=== PATIENT | female | born 1975 | race Caucasian/White ===

== ENCOUNTER → 2017-06-25 13:25 | Outpatient (CLI) | payer MEDICAID, SELFPAY ==
--- NOTE | 2017-06-25 | IMM_PTH ---
PATIENT: MARY ESCOBAR LOC: [facility] U#:[id number] AGE/SX: 49/F ROOM: RE06/25/[address]: Dr. Xochilt Soto MD : 1975 BED: DIS: SPEC #: [id number] RECD: 06/29/17 10:40 STATUS: BAN REQ #: [id number] AXEL: 06/25/17 00:[address]: Xochilt Soto DEPT: IMMUNOHISTOCHEMISTRY RECD BY: Livier Randall ENTERED: 06/29/17 10:41 SP TYPE: IMMUNO OTHR DR: Dr. Scott Avila MD Tissues: Left breast, NOS Procedures: CK8 (add) DESMIN (add) Vimentin (add) Pankeratin (add) Smooth Muscle Actin S-100 (add) PHYSICIAN & INSTITUTION [place] [id number] SPECIMEN INFORMATION: Tissue Source: Left breast Clinical Info: Abnormal left breast mammogram/ultrasound Specimen Number: [id number] CPT code: 79290, 11670 x5 METHODOLOGY: Deparaffinized sections of prefer/formalin-fixed tissue or PAP/DQ stained slides are incubated with monoclonal/polyclonal antibodies/oligonucleotide probes. Localization is made via biotin free immunoperoxidase method. Appropriate controls are performed and reacted as expected. Results on target cell population are indicated in the following table: RESULTS: ANTIBODY / CLONE RESULT S-100 (4C4.9) negative Actin (1A4) negative Desmin (CE-R-11) negative Vimentin (V9) positive AE1-3 (AE1/AE3/PCK26) negative CK8 (26dnooE49) negative These tests were developed and their performance characteristics determined by [facility]. They may not have been cleared or approved by the U.S. Food and Drug Administration. The FDA has determined that such clearance or approval is not necessary. INTERPRETATION: Left breast, ultrasound-guided needle core biopsy: Breast tissue with spindle cell (fibroblast) proliferation and chronic inflammation, favor reactive/ inflammatory process. SJ:linda 07/09/17 Comment: This case was sent to [facility] for expert opinion and reviewed by Dr. Soto and the above diagnosis is rendered. Case has been reviewed in consultation with Dr. De Guzman who concurs with the above diagnosis. IDC:AM
--- NOTE | 2017-06-25 13:25 | BRBX_PTH ---
PATIENT: MARY ESCOBAR LOC: [facility] U#:[id number] AGE/SX: 49/F ROOM: RE06/25/[address]: Dr. Xochilt Soto MD : 1975 BED: DIS: SPEC #: [id number] RECD: 06/27/17 17:27 STATUS: BAN ARRIAGAHa #: [id number] AXEL: 06/25/17 13:[address]: Xochilt Soto DEPT: SURGICAL PATHOLOGY RECD BY: Jory Traylor ENTERED: 06/28/17 11:18 SP TYPE: BREAST BX OTHR DR: Dr. Scott Avila MD Tissues: Left breast, NOS Procedures: Surgery Specimen Level IV HEADER OPERATION: Ultrasound guided left breast needle core biopsy PRE-OP DIAGNOSIS: Abnormal left breast mammogram/ultrasound TISSUE SUBMITTED: Left breast, needle core biopsy ISCHEMIC TIME: 2 minutes MICROSCOPIC DIAGNOSIS Left breast, ultrasound-guided needle core biopsy: Breast tissue with spindle cell (fibroblast) proliferation and chronic inflammation, favor reactive/ inflammatory process. See comment. LESTER:linda 07/09/17 COMMENT The specimen was sent to [facility] for expert opinion and reviewed by Dr. Soto and above diagnosis is rendered. The complete report is viewable in patient?s EMR. Immunohistochemistry ([id number]) and additional stains performed at [facility] supports the above diagnosis. Correlation with clinical, radiologic findings and apjpropriate follow up are necessary. Case has been reviewed in consultation with Dr. De Guzman who concurs with the above diagnosis. IDC:AM MICROSCOPIC DESCRIPTION Slides are reviewed. GROSS DESCRIPTION Received in fixative is one container labeled with the patient's name and designated left breast biopsy. The specimen consists of multiple elongated fragments of powlel-yellow fibroadipose tissue mixed with blood clot that in aggregate measure 3 x 2.5 x 0.1 cm. The entire specimen is submitted in one cassette. / LESTER:linda 06/28/16 TC:5 CPT: 85456
== END ==
PROVIDERS: Family Provider Family Medicine; PCP Family Medicine; Visit Provider Surgery
DX: R92.8 Other abnormal and inconclusive findings on diagnostic imaging of breast (principal)
CPT/HCPCS: 88305; 88341; 88342

== ENCOUNTER 2019-04-30 11:57 | Emergency (ER) | payer MEDICAID, SELFPAY ==
[2019-04-30 11:59] VITALS: BP 166/115; PULSE 96; RESP 17; TEMP 36.9; O2SAT 99; BMI 61.5
--- NOTE | 2019-04-30 12:01 | NURSING ---
NO OLD EKGS
--- NOTE | 2019-04-30 12:03 | NURSING ---
NO OLD EKGS
--- NOTE | 2019-04-30 12:08 | EKG12_ITS ---
Test Reason : EPIGASTRIC PAIN/CP Blood Pressure : / mmHG Vent. Rate : 093 BPM Atrial Rate : 093 BPM P-R Int : 148 ms QRS Dur : 084 ms QT Int : 364 ms P-R-T Axes : 054 004 032 degrees QTc Int : 452 ms Normal sinus rhythm Normal ECG Confirmed by RANJAN TREVINO, NIKKI ([id number]), editor in chief newspaper SANIYA FLOR ([id number]) on 05/07/2019 2:26:20 PM Referred By: ANGELICA/JENNIFER Confirmed By:ULICES WOODRUFF MD
--- NOTE | 2019-04-30 12:27 | ED.DCSUM_ITS ---
- ER Visit Summary Date of Service: 04/30/19 Chief Complaint: Epigastric pain History of Present Illness: The patient is a 43 F history of cardiac disease. History of reflux. She takes a generic for Prilosec. States she was out of her medication for several days. Started this discomfort she just started her Prilosec again yesterday and started to feel better. Her friend Markie her to have the pain checked out since it was in her lower chest epigastric region. She denies any cardiac history. She denies any exertional chest pain or exertional shortness of breath. She states this is felt this way before secondary to her reflux. It is improving since she is restarted her Prilosec. Physical Examination: Middle-aged female no acute distress vital signs are stable afebrile. Pulse ox 90% room air no signs hypoxia. H EENT exam unremarkable. Neck nontender. Lungs clear to auscultation bilaterally. Heart regular rate and rhythm no murmur. Chest wall nontender. Abdomen soft nontender normal bowel sounds no peritoneal signs. Patient is moving all 4 extremities. Calves are nontender without edema. Neurologically she is awake and alert with no focal motor deficits. Test Results: EKG shows a normal sinus rhythm rate of 93 with no signs of [place] or ischemia. Emergency Department Course and Treatment: I had a lengthy discussion with the patient. She does not think this is cardiac. Clinically I do not think is cardiac. She will get a GI cocktail and Pepcid and be reassessed. Treatment Plan: Continue her current medications and follow-up with your doctor if not improving return if worse. Disposition: dc. Impression: Acute gastroesophageal reflux This note was generated with [employer] dictation software. It may contain incorrect words, spelling, and punctuation that were not noted in review of the chart prior to signing ED Disposition - Plan for ED Patient: Referrals: Verito Sandy MD [Primary Care Provider] -
--- NOTE | 2019-04-30 12:30 | ED.DEP ---
ED Disposition - Plan for ED Patient: Disposition: Home or Assisted Living Instructions: GERD (Adult) Referrals: Verito Sandy MD [Primary Care Provider] - As Needed Additional Instructions: Continue your current reflux medications. Follow-up with your doctor if not improving or return to the ER if worse.
[2019-04-30] MEDS: Mag Hydrox/Al Hydrox/Simeth 30 ML UDC PO (12:31)
[2019-04-30] MEDS: Famotidine 20 MG Tablet 40 MG PO (12:31)
[2019-04-30 13:20] VITALS: BP 125/75; PULSE 89; RESP 20; O2SAT 98
== END 2019-04-30 13:34 | disposition home or self-care (01) ==
LOC: ED 12:38
PROVIDERS: Emergency Provider Emergency Medicine; Family Provider Internal Medicine; PCP Internal Medicine
DX: K21.9 Gastro-esophageal reflux disease without esophagitis (principal); Z79.899 Other long term (current) drug therapy
CPT/HCPCS: 93005; 99283

== ENCOUNTER 2021-03-10 04:04 | Inpatient (IN) | payer MEDICAID, SELFPAY ==
[2021-03-10] VITALS (19 sets, daily range): BP systolic 148–197; BP diastolic 87–113; PULSE 100–113; RESP 16–22; TEMP 36.1–37.6; O2SAT 94–99; BMI 64.7; BMI 64.2
--- NOTE | 2021-03-10 04:42 | RAD_ITS ---
STUDY: X-RAY CHEST REASON FOR EXAM: Female, 45 years old. Chest pain TECHNIQUE: Portable, upright, AP chest radiograph COMPARISON: None. FINDINGS: Bilateral infrahilar patchy opacities. There is no demonstrated pleural abnormality. Normal size heart. Normal mediastinum and mckay. Normal visualized pulmonary arteries. Normal visualized aortic arch and descending thoracic aorta. There are diffuse degenerative changes of the visualized thoracic spine. There is no demonstrated abnormality of the visualized soft tissue structures of the upper abdomen. RAD/Chest 1 View (Portable) IMPRESSION: Suspect bilateral infrahilar pneumonia. Electronically Signed: Miguel Higgins MD at 5:25 EDT Tel , Service support ,
--- NOTE | 2021-03-10 04:43 | EKG12_ITS ---
Test Reason : DYSRHYTHMIA Blood Pressure : / mmHG Vent. Rate : 103 BPM Atrial Rate : 103 BPM P-R Int : 182 ms QRS Dur : 082 ms QT Int : 366 ms P-R-T Axes : 055 002 037 degrees QTc Int : 479 ms Sinus tachycardia Otherwise normal ECG Confirmed by PRINCE TREVINO, JORGE ([id number]), mapping editor FIGUEROA ESPINOZA ([id number]) on 03/15/2021 8:30:14 AM Referred By: BRADEN Confirmed By:JORGE MORRISON MD
--- NOTE | 2021-03-10 04:54 | EDS_ITS ---
HPI History of Present Illness Chief Complaint: General Illness Informant: patient Onset/Context/Timing Onset: Today Context: Gradual Onset Timing: Continuous Quality: Sharp Location: Right breast Worsened by: Nothing Relieved by: Pressing on a certain spot on the right chest Narrative Narrative: Patient presents with right-sided chest pain that began earlier today. Patient states it is sharp. Patient states it is under her right breast. Patient states it is better when she pushes on a certain spot on her right chest. Patient states nothing makes it worse. Patient admits to some nausea and vomiting. Patient denies any diaphoresis. Patient denies any shortness of breath or cough. Patient denies any fevers or chills. Patient states the pain has been constant. [facility] Medical History GERD (gastroesophageal reflux disease) Home Medications omeprazole 40 mg PO DAILY 04/30/19 [History Last Taken Unknown] Allergy/AdvReac Type Severity Reaction Status Date / Time No Known Allergies Allergy Verified 04/30/19 11:58 Surgical History History of tonsillectomy Social History Smoking Status: Never smoker ROS ROS ED Constitutional Constitutional ED: Denies chills or fever(s) Eyes Eyes: Denies blurry vision or change in vision ENT ENT ED: Denies rhinorrhea or sore throat Cardiovascular Cardiovascular: Reports chest pain; Denies palpitations Respiratory/Chest Respiratory/Chest: Denies cough or dyspnea Gastrointestinal Gastrointestinal: Reports nausea and vomiting Genitourinary Genitourinary ED: Denies dysuria or hematuria Musculoskeletal Musculoskeletal: Denies back pain or neck pain Integumentary Denies abscess or rash Neurologic Neurologic: Denies headache(s) or weakness Allergic/Immunologic Allergic/Immunologic ED: Denies mouth swelling or urticaria EXAM Physical Exam Const Vital Signs: 03/10/21 04:05 03/10/21 04:13 03/10/21 05:19 Temperature 98.0 F Temperature Source Oral Pulse Rate 113 H 105 H Respiratory Rate 18 Respiratory Pattern Normal Blood Pressure 197/113 H 173/102 H Blood Pressure Mean 141 125 Pulse Ox 95 97 Oxygen Delivery Method Room Air Room Air Positive well nourished, well developed and obese General Appearance ED: well developed Nutritional Appearance: obese HEENT Reports moist mucous membranes Neck supple and no JVD Resp normal respiratory effort and clear to auscultation bilaterally Cardio regular rate, regular rhythm and no murmurs GI normal to inspection, nondistended, normoactive bowel sounds and non-tender Palpation: soft Extremity normal to inspection General Extremety ED: Negative for edema or tenderness General Extremity: Negative for edema Neuro oriented x3, CN's II-XII intact bilaterally and no sensory deficits noted Sensorium / Orientation: alert Motor Exam: strength 5/5 throughout Psych mental status grossly normal Skin no rashes or lesions noted MDM MDM MDM Narrative Medical decision making narrative: EKG was obtained. On my interpretation, it showed a normal sinus rhythm with a rate of 103. DE interval, QRS interval, and QTc intervals were all normal. [place] was normal. There are no acute ST or T wave changes. Portable chest x-ray was obtained. There is 1 view. On my interpretation, there is question of bilateral lower lobe infiltrates. Bony thorax is normal. There is no cardiomegaly. Radiologist also interpreted the x-ray and agrees. CBC was within normal limits. Comprehensive metabolic profile showed an elevated total bilirubin of 2.1. AST was 673, ALT was 560, and alk phos was 205. Initial high-sensitivity troponin was normal. 2-hour repeat high-sensitivity troponin was normal. Lipase was normal. Right upper quadrant ultrasound was obtained. There is cholelithiasis. There is dilation of the common bile duct to 11 mm. There is no gallbladder wall thickening. There is no pericholecystic fluid. This was interpreted by the radiologist and reviewed by myself. Patient is resting comfortably on reevaluation. Patient was advised of her findings. Case was discussed with Dr. Bagley from general surgery. He will be in to evaluate the patient. Lab Data Attestation: I reviewed the patient's lab results. Labs: Laboratory Results - last 24 hr 03/10/21 03/10/21 03/10/21 05:04 05:04 05:04 WBC 8.9 RBC 5.02 Hgb 12.7 Hct 41.2 MCV 82.1 MCH 25.3 L MCHC 30.8 L RDW Std Deviation 48.2 H RDW Coeff of Chris 16.3 H Plt Count 276 MPV 10.4 Immature Gran % (Auto) 0.300 Neut % (Auto) 83.7 H Lymph % (Auto) 9.9 L [place] % (Auto) 5.6 Eos % (Auto) 0.2 Baso % (Auto) 0.3 Absolute Neuts (auto) 7.4 Absolute Lymphs (auto) 0.88 Nucleated RBC % 0 Sodium 135 L Potassium 4.0 Chloride 101 Carbon Dioxide 25.0 Anion Gap 9 BUN 8 Creatinine 0.86 Estim Creat Clear Calc 59.96 Est GFR (MDRD) Af Amer 92 Est GFR (MDRD) Non-Af 76 BUN/Creatinine Ratio 9.3 L Glucose 129 H Calcium 9.0 Total Bilirubin 2.10 H AST 673 H ALT 560 H Alkaline Phosphatase 205 H Troponin I High Sens 5 5 Total Protein 8.2 Albumin 3.3 Globulin 4.9 H Albumin/Globulin Ratio 0.7 L Lipase 73 Radiography Chest X-Ray - ED: 1 View, Read by ED Physician, Read by Radiologist, Right Infiltrate and Left Infiltrate Diagnostic Testing: Clinical Impression(s) from Imaging Studies Chest X-Ray 03/10/21 04:42 IMPRESSION: Suspect bilateral infrahilar pneumonia. Electronically Signed: Miguel Higgins MD at 5:25 EDT Tel , Service support , Gallbladder Ultrasound 03/10/21 07:03 IMPRESSION: 1. Cholelithiasis. 2. Distended common bile duct. Recommend follow-up MRCP to exclude obstructing stone or mass. 3. Parenchymal liver disease. at 0832 Reported and signed by: Bin Mcgee MD Electronically Signed: Bin Mcgee MD at 8:31 EDT Tel , Service support , EKG Initial EKG: Attestation: I personally reviewed and interpreted this EKG as follows: Interpretation: No Acute Injury Pattern and Sinus Tachycardia (103) Prior EKG tracings: available for review Prior: Unchanged (04/30/2019) Discharge Plan Triage Chief Complaint: General Illness ED Provider: Schwiger,Lawrence Dx/Rx/DC Orders Clinical Impression: Cholelithiasis Instructions: ED Gallstones with Biliary Colic Prescriptions: No Action omeprazole 40 MG capsule,delayed release(DR/EC) 40 mg PO DAILY RF: 0 Primary Care Provider: Verito Sandy Referrals: Verito Sandy MD [Primary Care Provider] -
[2021-03-10 05:12] LABS: Absolute Lymphocyte Count 0.88 X10^3/uL (0.83-4.51); Absolute Neutrophil Count 7.4 X10^3/uL (2.0-7.7); Basophil# 0.03 X10^3/uL; Basophil% 0.3 % (0-1); Eosinophil# 0.02 X10^3/uL; Eosinophils% 0.2 % (0-5); Hematocrit 41.2 % (37-47); Hemoglobin 12.7 g/dL (12.0-15.0); Lymphocyte # 0.88 X10^3/ul (0.83-4.51); Lymphocyte % 9.9 % (19-41); Mean Corp Hgb Conc 30.8 g/dL (32-36); Mean Corpuscular Hgb 25.3 pg (27.0-32.0); Mean Corpuscular Volume 82.1 fL (81-99); Mean Platelet Vol. 10.4 fl (6.2-12.0); Monocyte% 5.6 % (0-10); NRBC Flagged by Analyzer 0 % (0-5); Neutrophil % 83.7 % (47-70); Platelet Count 276 K/mm3 (150-450); RBC Distribution Width CV 16.3 % (11.6-14.6); RBC Distribution Width SD 48.2 fl (35.1-43.9); Red Blood Count 5.02 M/mm3 (4.2-5.4); White Blood Count 8.9 K/mm3 (4.4-11.0)
[2021-03-10 05:35] LABS: ALB/GLOB Ratio 0.7 RATIO (0.9-2.4); AST(SGOT) 673 U/L (15-37); Alanine Aminotransfer ALT/SGPT 560 U/L (13-56); Albumin, Serum 3.3 g/dL (3.2-5.0); Alkaline Phosphatase 205 U/L (45-117); Anion Gap 9 (5-15); BUN 8 mg/dL (7-18); BUN/Creat Ratio 9.3 RATIO (10-20); Chloride 101 mmol/L (98-107); Creatinine, Serum 0.86 mg/dL (0.55-1.02); EST Glomerular Filtration Rate 76 mL/min (>60); Est Glom Filt Rate - Afr Amer 92 mL/min (>60); Estimated Creatinine Clearance 59.96 ml/min; Globulin 4.9 g/dL (2.2-4.2); Glucose 129 mg/dL (74-106); Lipase 73 U/L (73-393); Protein, Total 8.2 g/dL (6.4-8.2); Sodium Level 135 mmol/L (136-145); Troponin-I HS 5 pg/mL (3.0-54.0)
--- NOTE | 2021-03-10 07:03 | US_ITS ---
EXAM: US ABDOMEN LIMITED, RIGHT UPPER QUADRANT : 1975 CLINICAL INDICATION: pain, indigestion limited d/t body habitus TECHNIQUE: Real-time ultrasound of the right upper quadrant with image documentation. This report was created using [employer] report generation technology. COMPARISON: None. FINDINGS: LIVER: There is a diffuse increase in hepatic parenchymal echogenicity, consistent with fatty infiltration. GALLBLADDER: Shiv sign noted consistent with stone filled gallbladder. No pericholecystic fluid. COMMON BILE DUCT: Common hepatic duct is dilated measuring 11 mm in maximum diameter. Distal obstructing stone or mass not excluded. PANCREAS: Unremarkable as visualized. No focal abnormality is demonstrated in the pancreas. No pancreatic ductal dilatation. RIGHT KIDNEY: Unremarkable. There is no hydronephrosis. No shadowing calculus. No focal lesion or perinephric collection is demonstrated. US/Gallbladder IMPRESSION: 1. Cholelithiasis. 2. Distended common bile duct. Recommend follow-up MRCP to exclude obstructing stone or mass. 3. Parenchymal liver disease. at 0832 Reported and signed by: Bin Mcgee MD Electronically Signed: Bin Mcgee MD at 8:31 EDT Tel , Service support ,
[2021-03-10 07:12] LABS: Troponin-I HS 5 pg/mL (3.0-54.0)
[2021-03-10] MEDS: Ondansetron 4 MG/2 ML Vial IV ×2 (07:17→09:44)
--- NOTE | 2021-03-10 09:42 | EX.PCM.CON.S ---
Assessment & Plan Assessment/Plan (1) Cholelithiasis with choledocholithiasis: PLAN: Is a 45-year-old female with a less than 12-hour history of mild upper abdominal discomfort (now stating left-sided) and clinical evidence of choledocholithiasis. Exam reveals no focal peritonitis but patient has transaminitis and hyperbilirubinemia on laboratories. Furthermore, right upper quadrant ultrasound demonstrates cholelithiasis with a dilated common duct to 11 mm. Her white blood cell count is normal but there is a left shift. She is not appear to have concurrent cholecystitis. We have discussed clinical management with cholecystectomy and intraoperative cholangiogram. I have also introduced probability of an ERCP procedure to verify ductal patency. Patient is agreeable to all of the above. Neuro: As needed acetaminophen, as needed Dilaudid Pulm/CV: Monitor patient's tachycardia and hypertension. If they do not resolve with management of her acute gallstone issues, will seek hospitalist consultation FEN/GI: Monitoring of electrolytes. Patient to be n.p.o. for procedures over the next 2 days. Pantoprazole given patient's history of GERD and chronic PPI use. Tentatively planning for ERCP later today followed by cholecystectomy tomorrow 03/11/2021. Heme/ID: Monitor CBC, empiric Zosyn coverage given probable biliary obstruction Endo: No current issues Proph: Subcutaneous heparin 3 times daily plus ambulate as tolerated Dispo: Inpatient admission HPI Consult Data Date of Consult: 03/10/21 HPI Narrative HPI Narrative: MARY ESCOBAR, is a 45 F who presents to [facility] emergency room with complaints of left?sided abdominal pain, chest pain and intractable reflux symptoms. She admits to a chronic history of reflux, but states this time is been different since her omeprazole has not well managed her symptoms. Given her multiple complaints, emergency medicine performed a chest x-ray as well as a right upper quadrant ultrasound and broad biochemistries. The above are notable for possible bibasilar infiltrates on the chest x-ray, but more telling was her CMP which showed elevated LFTs, elevated T bili and her ultrasound confirmed dilation of the common bile duct to 11 mm. Notably negative for an absence of pericholecystic fluid and gallbladder wall thickening. Gallstones were visualized. [facility] Medical History GERD (gastroesophageal reflux disease) Home Medications omeprazole 40 mg PO DAILY 04/30/19 [History Last Taken Unknown] Allergy/AdvReac Type Severity Reaction Status Date / Time No Known Allergies Allergy Verified 04/30/19 11:58 Surgical History History of tonsillectomy Social History Smoking Status: Never smoker Physical Exam Const alert and oriented x3 Constitutional Narrative: Belching loudly General Appearance: in distress Positive for mild Nutritional Appearance: morbidly obese GI Inspection: central obesity and pannus present; Negative for scar or visible herniation Palpation: soft; Negative for tender or hernia Lab / Micro Data Result Diagrams: 03/10/21 05:04 03/10/21 05:04 Labs: Laboratory Results - last 24 hr 03/10/21 05:04: WBC 8.9, RBC 5.02, Hgb 12.7, Hct 41.2, MCV 82.1, MCH 25.3 L, MCHC 30.8 L, RDW Std Deviation 48.2 H, RDW Coeff of Chris 16.3 H, Plt Count 276, MPV 10.4, Immature Gran % (Auto) 0.300, Neut % (Auto) 83.7 H, Lymph % (Auto) 9.9 L, [place] % (Auto) 5.6, Eos % (Auto) 0.2, Baso % (Auto) 0.3, Absolute Neuts (auto) 7.4, Absolute Lymphs (auto) 0.88, Nucleated RBC % 0 03/10/21 05:04: Sodium 135 L, Potassium 4.0, Chloride 101, Carbon Dioxide 25.0, Anion Gap 9, BUN 8, Creatinine 0.86, Estim Creat Clear Calc 59.96, Est GFR (MDRD) Af Amer 92, Est GFR (MDRD) Non-Af 76, BUN/Creatinine Ratio 9.3 L, Glucose 129 H, Calcium 9.0, Total Bilirubin 2.10 H, AST 673 H, ALT 560 H, Alkaline Phosphatase 205 H, Troponin I High Sens 5, Total Protein 8.2, Albumin 3.3, Globulin 4.9 H, Albumin/Globulin Ratio 0.7 L, Lipase 73 03/10/21 05:04: Troponin I High Sens 5 Micro: Microbiology 03/10/21 09:15 Nasal Secretion SARS-CoV-2 Antigen (Rapid) - Final Radiology Impression Chest X-Ray 03/10/21 04:42 IMPRESSION: Suspect bilateral infrahilar pneumonia. Electronically Signed: Miguel Higgins MD at 5:25 EDT Tel , Service support , Gallbladder Ultrasound 03/10/21 07:03 IMPRESSION: 1. Cholelithiasis. 2. Distended common bile duct. Recommend follow-up MRCP to exclude obstructing stone or mass. 3. Parenchymal liver disease. at 0832 Reported and signed by: Bin Mcgee MD Electronically Signed: Bin Mcgee MD at 8:31 EDT Tel , Service support , Charges/Coding Visit Charges Inpatient E&M: 44134 Init Hosp L2
[2021-03-10] MEDS: Morphine 4 MG/ML Syringe IV (09:44)
[2021-03-10] MEDS: Lactated Ringers 1,000 ML 125 ML IV (11:15)
[2021-03-10] MEDS: 0.9% Normal Saline 1,000 ML 125 ML IV ×2 (12:35→20:25)
--- NOTE | 2021-03-10 13:32 | PCM.PN.BLA ---
Progress Note Patient came in complaining of right upper quadrant pain and ultrasound showed cholelithiasis with a dilated common duct and labs revealed elevated LFTs. Patient is tender in the right upper quadrant. I was consulted for ERCP. I discussed ERCP with the patient in detail. I discussed the indications and the risks. I discussed the risks including but not limited to bleeding, infection, perforation of the bile duct or bowel, pancreatitis. Patient understands the risks as well to proceed with ERCP this afternoon. I also discussed the possibility of having to place a stent if I am unable to clear the duct of stones. Patient understands and is willing to proceed. Jhony Jefferson MD Pager: [facility] [address] [place] [address] [place] [address] Office:
--- NOTE | 2021-03-10 15:18 | SUR.PREOP ---
Pt refused test; states there is no way she is . Dr Guzman aware.
--- NOTE | 2021-03-10 15:30 | RAD_ITS ---
Fluoroscopic guided ERCP and biliary stent placement INDICATION: Bile duct obstruction TECHNIQUE: Fluoroscopic guided ERCP was performed by nursery worker followed by biliary stent placement and single film was obtained in the anterior projection. 5.4 seconds of fluoroscopic time were utilized during the study FINDINGS: Single film of the abdomen demonstrates presence of the ductal stent placement. For more complete information recommend correlation with surgical notes. RAD/ERCP Biliary Only IMPRESSION: Fluoroscopic guided ERCP and biliary stent placement Electronically Signed: Daniel Mendez MD at 16:54 EDT , Service support ,
--- NOTE | 2021-03-10 16:29 | OP.CCLET_ITS ---
03/10/2021 Verito Sandy [address] [place] [address] Re : ERCP procedure for Rehana Zari Dear Dr. Sandy This procedure was performed on February. My impressions and recommendations are as follows: Impressions : - Choledocholithiasis was found. Partial removal was accomplished with biliary sphincterotomy; a stent was inserted. - A single pancreatic stone was found. - A biliary sphincterotomy was performed. - The biliary tree was swept. - One plastic stent was placed into the common bile duct. Recommendations : - [facility]. My findings are described in the full procedure note, which is enclosed. If I can be of further assistance, please feel free to contact me at Doctor phone number(s): , Work: . Sincerely, Jhony Jefferson MD 03/10/2021 4:28:46 PM This report has been signed electronically.
--- NOTE | 2021-03-10 16:29 | OP.ERCP_ITS ---
Patient Name: Rehana Hameed Procedure Date: 03/10/2021 3:16 PM Date of : 1975 Age: 45 Procedure: ERCP Indications: Suspected bile duct stone(s), Elevated liver enzymes Providers: Jhony Jefferson MD Medicines: General Anesthesia Patient Profile: This is a 45 year old female. Refer to note in patient chart for documentation of history and physical. Complications: No immediate complications. Estimated blood loss: Minimal. Procedure: Pre-Anesthesia Assessment: - Prior to the procedure, a History and Physical was performed, and patient medications and allergies were reviewed. The patient's tolerance of previous anesthesia was also reviewed. The risks and benefits of the procedure and the sedation options and risks were discussed with the patient. All questions were answered, and informed consent was obtained. Prior Anticoagulants: The patient has taken no previous anticoagulant or antiplatelet agents. After reviewing the risks and benefits, the patient was deemed in satisfactory condition to undergo the procedure. After obtaining informed consent, the scope was passed under direct vision. Throughout the procedure, the patient's blood pressure, pulse, and oxygen saturations were monitored continuously. The [id number]/n [id number] endoscope was introduced through the mouth, and advanced to the duodenum and used to inject contrast into the bile duct. The ERCP was accomplished without difficulty. The patient tolerated the procedure well. Scope In: 3:51:09 PM Scope Out: 4:13:40 PM Total Procedure Duration Time 0 hours 22 minutes 31 seconds Findings: The ventral pancreatic duct was deeply cannulated with the sphincterotome. Contrast was injected. The main pancreatic duct contained a single stone. Biliary sphincterotomy was made with a monofilament sphincterotome using ERBE electrocautery. There was no post-sphincterotomy bleeding. To discover objects, the biliary tree was swept with a 12 mm balloon starting at the bifurcation. Basket removal was attempted but the stone was too large to remove. No stones were removed. One stone remained. One 10 Fr by 5 cm plastic stent with a single external flap and a single internal flap was placed into the common bile duct. Pus flowed through the stent. The stent was in good position. Impression: - Choledocholithiasis was found. Partial removal was accomplished with biliary sphincterotomy; a stent was inserted. - A single pancreatic stone was found. - A biliary sphincterotomy was performed. - The biliary tree was swept. - One plastic stent was placed into the common bile duct. Recommendation: - [facility]. Procedure Code(s): --- Professional --- 31000, Endoscopic retrograde cholangiopancreatography (ERCP); with placement of endoscopic stent into biliary or pancreatic duct, including pre- and post-dilation and guide wire passage, when performed, including sphincterotomy, when performed, each stent Diagnosis Code(s): --- Professional --- K80.50, Calculus of bile duct without cholangitis or cholecystitis without obstruction K86.89, Other specified diseases of pancreas R74.8, Abnormal levels of other serum enzymes CPT copyright 2017 [employer]. All rights reserved. The codes documented in this report are preliminary and upon environmental monitoring specialist review may be revised to meet current compliance requirements. Jhony Jefferson MD 03/10/2021 4:28:46 PM This report has been signed electronically. Number of Addenda: 0 Note Initiated On: 03/10/2021 3:16 PM
--- NOTE | 2021-03-10 16:29 | PCM.PN.BLA ---
Progress Note I performed an ERCP on the patient. The patient had a large stone in the mid common bile duct which was unable to be removed. A stent was placed beyond the stone and purulent material was expressed. Patient likely has cholangitis. Stent was in good position and patient was taken to PACU in stable condition. Recommend continuing antibiotics. Patient is to have laparoscopic cholecystectomy tomorrow. I will see the patient back for ERCP and stent and attempted stone removal in 1 month. Jhony Jefferson MD Pager: [facility] [address] [place] [address] Office:
--- NOTE | 2021-03-10 18:08 | SUR.PHASEI ---
Addendum entered by Jerald Umaña 03/10/21 18:11: HER BP WAS STILL HIGH AFTER A TOTAL OF 20 MG HYDRALAZINE. Original Note: THIS NURSE CALLED DR. ABREU TO TELL HIM THAT THE BP WAS STILL HIGH OF 163/104.HE SAID TO SEND HER UP AND THEY CAN HAVE DR. ARGUETA ADDRESS HER BP . MELI COMBSUNDERGRADUATE ADVISOR NURSE FROM [facility] WAS MADE AWARE AND WOULD ADDRESS IT WHEN SHE GETS UP HERE.
[2021-03-10] MEDS: Acetaminophen 325 MG Tablet 650 MG PO (22:00)
[2021-03-10] MEDS: hydrALAZINE 20 MG/ML Vial 10 MG IV (23:04)
[2021-03-11] VITALS (16 sets, daily range): BP systolic 104–171; BP diastolic 71–104; PULSE 92–110; RESP 16–18; TEMP 36.6–37.1; O2SAT 92–98; BMI 64.2
[2021-03-11 07:39] LABS: Absolute Lymphocyte Count 0.87 X10^3/uL (0.83-4.51); Absolute Neutrophil Count 12.2 X10^3/uL (2.0-7.7); Basophil# 0.02 X10^3/uL; Basophil% 0.1 % (0-1); Eosinophil# 0.01 X10^3/uL; Eosinophils% 0.1 % (0-5); Hematocrit 40.8 % (37-47); Hemoglobin 12.2 g/dL (12.0-15.0); Lymphocyte # 0.87 X10^3/ul (0.83-4.51); Lymphocyte % 6.3 % (19-41); Mean Corp Hgb Conc 29.9 g/dL (32-36); Mean Corpuscular Hgb 24.6 pg (27.0-32.0); Mean Corpuscular Volume 82.4 fL (81-99); Mean Platelet Vol. 10.8 fl (6.2-12.0); Monocyte% 4.3 % (0-10); NRBC Flagged by Analyzer 0 % (0-5); Neutrophil # 12.21 X10^3/uL (2.7-7.7); Neutrophil % 87.9 % (47-70); Platelet Count 284 K/mm3 (150-450); RBC Distribution Width CV 16.9 % (11.6-14.6); RBC Distribution Width SD 50.8 fl (35.1-43.9); Red Blood Count 4.95 M/mm3 (4.2-5.4); White Blood Count 13.9 K/mm3 (4.4-11.0)
--- NOTE | 2021-03-11 07:43 | PCM.PN.SRG ---
Subjective Subjective Patient seen and examined during AM rounds. She reports some improvements in her abdominal discomfort. She underwent ERCP yesterday with stent placement. Unfortunately her stone was lodged in her duct such that was not easily extracted. She confirms she is n.p.o. past midnight and denies any questions regarding her planned surgery today. Objective Data Objective Data Vital Signs: Vital Signs Temp Pulse Resp BP Pulse Ox 98.6 F 109 H 16 137/86 H 97 03/11/21 06:41 03/11/21 06:41 03/11/21 06:41 03/11/21 06:41 03/11/21 06:41 Oxygen Flow Rate (L/min) 2 Oxygen Delivery Method Nasal Cannula Weight: 328 lb 14.875 oz Body Mass Index (BMI) 64.2 Intake & Output: Intake and Output for Last 24 Hours 03/09/21 03/10/21 03/11/21 23:59 23:59 23:59 Intake Total 1279.17 / 1279.17 50 / 50 Balance 1279.17 / 1279.17 50 / 50 Lab / Micro Data Result Diagrams: 03/11/21 06:55 03/11/21 06:55 Labs: Laboratory Results - last 24 hr 03/11/21 06:55: WBC 13.9 H, RBC 4.95, Hgb 12.2, Hct 40.8, MCV 82.4, MCH 24.6 L, MCHC 29.9 L, RDW Std Deviation 50.8 H, RDW Coeff of Chris 16.9 H, Plt Count 284, MPV 10.8, Immature Gran % (Auto) 1.300 H, Neut % (Auto) 87.9 H, Lymph % (Auto) 6.3 L, Assumption % (Auto) 4.3, Eos % (Auto) 0.1, Baso % (Auto) 0.1, Absolute Neuts (auto) 12.2 H, Absolute Lymphs (auto) 0.87, Nucleated RBC % 0 Micro: Microbiology 03/10/21 09:15 Nasal Secretion SARS-CoV-2 Antigen (Rapid) - Final Radiography Diagnostic Testing: Radiology Impression Gallbladder Ultrasound 03/10/21 07:03 IMPRESSION: 1. Cholelithiasis. 2. Distended common bile duct. Recommend follow-up MRCP to exclude obstructing stone or mass. 3. Parenchymal liver disease. at 0832 Reported and signed by: Bin Mcgee MD Electronically Signed: Bin Mcgee MD at 8:31 EDT Tel , Service support , ERCP X-Ray 03/10/21 15:30 IMPRESSION: Fluoroscopic guided ERCP and biliary stent placement Electronically Signed: Daniel Mendez MD at 16:54 EDT , Service support , Physical Exam Const oriented x3 and no apparent distress Resp normal respiratory effort GI GI Narrative: Nondistended, soft, nontender to palpation x4 quadrants Assessment & Plan Assessment/Plan (1) Cholelithiasis with choledocholithiasis: PLAN: Patient is hospital day 2 for admission for choledocholithiasis (ERCP yesterday confirms suspicion for cholangitis). Patient still denying any right upper quadrant tenderness hopefully this is early in her presentation and she has not developed cholecystitis. Planning for laparoscopic cholecystectomy today. Patient denies any questions regarding the procedure. Charges/Coding Visit Charges Inpatient E&M: 14397 Subs Hosp L2
[2021-03-11 08:09] LABS: ALB/GLOB Ratio 0.5 RATIO (0.9-2.4); AST(SGOT) 467 U/L (15-37); Alanine Aminotransfer ALT/SGPT 618 U/L (13-56); Albumin, Serum 2.8 g/dL (3.2-5.0); Alkaline Phosphatase 278 U/L (45-117); Anion Gap 9 (5-15); BUN 7 mg/dL (7-18); BUN/Creat Ratio 8.4 RATIO (10-20); Calcium,Total 8.8 mg/dL (8.5-10.1); Chloride 102 mmol/L (98-107); Creatinine, Serum 0.84 mg/dL (0.55-1.02); EST Glomerular Filtration Rate 79 mL/min (>60); Est Glom Filt Rate - Afr Amer 95 mL/min (>60); Estimated Creatinine Clearance 61.39 ml/min; Globulin 5.1 g/dL (2.2-4.2); Glucose 114 mg/dL (74-106); Lipase 73 U/L (73-393); Protein, Total 7.9 g/dL (6.4-8.2); Sodium Level 136 mmol/L (136-145)
[2021-03-11 08:44] LABS: Internal QC Validated? YES +Cl - CLEAR BKGD; Pregnancy, Urine Negative Negative
[2021-03-11] MEDS: Acetaminophen 325 MG Tablet 650 MG PO (08:50)
[2021-03-11] MEDS: Pantoprazole Sodium 40 MG Tablet PO (08:50)
[2021-03-11] MEDS: 0.9% Saline Lock 10 ML Syringe IV (08:51)
--- NOTE | 2021-03-11 10:58 | CASEMGMT ---
GARRET CARIAS Assessment: Face to Face with pt for initial transition planning/care coordination assessment. RN JV introduced self and role at [facility], pt voices understanding and consents to assessment. Pt is A/O x4 and answers all questions appropriately at this time. Pt sitting up in bed in no distress with mother at bedside. Care providers, pharmacy, and demographics verified/updated. Admitting Dx: GB Disease PCP: Vika Specialists: Pt denies having any specialists. Preferred Pharmacy: [facility] Insurance: [facility] Prescription Benefit: yes LW/HPOA: Pt denies having a LW/DPOA and denies need for info regarding AD. LNOK: Berna Hameed, mother Living Arrangements: Pt lives with her 22 year old son in a second floor apartment with 15 steps to enter with a rail. Pt reports she is I in ADL's and denies concerns at home. Transportation: Pt drives self and denies concerns with transportation. DME/HHC/SNF: Pt denies having any DME in the home, hx of HHC or SNF stays. Pt states no concerns with going home at time of dc. Pt planned to have surgery today. Pt states no further concerns/needs. CM to follow. Advised pt to ask CM if any further question/concerns/needs arise, voices understanding. Pt Goal: Home Plan: Home
--- NOTE | 2021-03-11 11:18 | NURSING ---
pt transported off unit via bed at this time
[2021-03-11] MEDS: Bupivacaine Mpf 0.5% 30 ML VIAL (12:29)
--- NOTE | 2021-03-11 16:26 | PCM.OPRPT ---
Problems Associated Problem List Diagnoses (1) Cholelithiasis with choledocholithiasis: Report of Operation Date of Procedure: 03/11/21 Pre-Operative Diagnosis: Cholelithiasis with choledocholithiasis Post-Operative Diagnosis: Chronic cholecystitis with choledocholithiasis Surgery/Procedure Performed:: Laparoscopic subtotal cholecystectomy Description of Surgical Findings:: ?Chronically inflamed gallbladder with densely filled with large cholesterol gallstones Surgeon: Álvaro Bagley roving tester laboratory: [facility] Christiansen roving tester laboratory: [facility] Type of Anesthesia: General/Supplemental Anesthesiologist: Fabricio Guzman Specimen's removed: Gallbladder and gallstones Drains: 15F round Yuniel Estimated Blood Loss (mL): 125 Description of Procedure: After proper identification in the preoperative holding area the patient was brought to the operating room where she was positioned supine on the operating room table with the left arm tucked. Preoperative DVT prophylaxis was given routinely on the floor and patient's scheduled dose of antibiotics was administered in the operating room. General endotracheal anesthesia was then induced. Patient's abdomen was prepped and draped in usual sterile fashion. A formal timeout was conducted to confirm both patient and the procedure. Procedure was begun with an attempt at a Veress entry at Malcolm's point. However, despite 3 attempts at insufflation following the water drop technique the insufflation pressures remained high and I was concerned that we were in the preperitoneal space. Therefore I elected to perform a Wilde technique. A supraumbilical incision was made which was extended deeply down to the level of the fascia. The fascia was elevated and incised, as well as the peritoneum. A finger sweep was performed to ensure there were no underlying adhesions and a 12 mm balloon trocar was inserted. Pneumoperitoneum was established at 15 mmHg. 4 additional trochars were placed in the epigastrium (12 mm) and in the right upper quadrant (3 x 5 mm). Inspection of the peritoneum revealed no inadvertent injury to the viscera below from either the Veress needle or the Wilde entry. The gallbladder was visualized with chronic, dense inflammation causing a whitening of the tissue. The gallbladder fundus was then grasped and elevated cephalad with some difficulty given the inability to deform the gallbladder because of chronic inflammation about numerous large gallstones within the gallbladder lumen. Then, using careful dissection, the adherent omentum was stripped away and the peritoneum was opened. No ductal structures were divided but meticulous dissection was made to try to better delineate the components of the hepatocystic triangle. Unfortunately this triangle was collapsed and the artery directly overlaid a ductal structure entering the gallbladder. This ductal structure was of significant caliber and appeared to directly enter the duodenum (which was pulled up into this area initially as well). It was impossible to distinguish the cystic duct from the common bile duct. Given the impaction of the gallstones and severe inflammation, we discussed the significant difficulty that would be faced trying to perform a cholangiogram at this point. Therefore will be elected to proceed with a dome-down approach to the gallbladder. Placing a laparoscopic liver retractor to hold of the liver, the gallbladder was slowly placed on traction away from the liver and simultaneously cauterized it from the gallbladder fossa. As we approached the level of the hilar plate we switched to blunt dissection of any individual structures. Still, it was impossible to clearly delineate the anatomy. It was at this point we elected to proceed with a subtotal cholecystectomy. A 0 Vicryl Endoloop was placed about the bladder fundus approximately two th[address] the way down the body and cinched tight. Then a combination of scissors and monopolar electrocautery were used to divide the gallbladder wall. A Endo Catch bag was placed just beneath the level of the ductal structures and all gallstones were placed directly in the bag as they were encountered with a laparoscopic grasper. With the top half of the gallbladder amputated, it was placed into the Endo Catch bag and we selectively removed the remaining gallstones from the remnant/infundibular portion of the gallbladder. Then a second Endoloop (this time 0 PDS) was placed about the remnant gallbladder and cinched tight once we assured it was well above any of the ambiguous ductal structures below. Electrocautery was used to ablate the gallbladder mucosa. Morison's pouch was then irrigated and the effluent was suctioned free. A 15 Upper Sorbian round Yuniel drain was fed into the peritoneum and withdrawn from the most lateral 5 mm port site and secured at the skin with 2-0 nylon. The drain was positioned underneath the liver adjacent the remnant gallbladder. Then the subxiphoid port site was enlarged and the specimen was removed in the Endo Catch bag. A Chris-Casey suture passer was used to close this port site under direct laparoscopic vision with a 0 PDS in a zfjmas-no-scxap fashion. Pneumoperitoneum was evacuated. The supraumbilical port site was then closed in interrupted fashion with #1 PDS. A total of 30 mL of half percent bupivacaine anesthetic was injected at the port sites for postoperative pain control. The skin of each port site was then closed in subcuticular fashion using 4-0 Monocryl. Steri-Strips and OpSite bandages were applied as dressings. Patient tolerated the procedure well without any apparent complications. On emergence from their anesthetic the patient was taken to PACU for ongoing recovery. Complications None Admit VTE Documentation VTE Present on Admission: Yes VTE Mechan Device Prophylaxis: SCD's Procedures Digestive 40xxx-49xxx: 80483 Laparoscopic cholecystectomy (21 modifier)
[2021-03-11] MEDS: 0.9% Normal Saline 1,000 ML 125 ML IV (18:39)
--- NOTE | 2021-03-11 19:35 | PCS.PANDOC ---
PANDEMIC DOCUMENTATION INITIATED: Date: 01/03/2021 Time: 190
[2021-03-11] MEDS: Heparin Injection (Vial) 5,000 UNIT/ML VIAL 5000 UNIT SC (23:09)
[2021-03-11] MEDS: Amox/Clavulanate 875 MG Tablet PO (23:09)
[2021-03-12] VITALS (7 sets, daily range): BP systolic 140–166; BP diastolic 78–99; PULSE 107–120; RESP 16–20; TEMP 37.1–37.4; O2SAT 91–95
--- NOTE | 2021-03-12 | GALL_PTH ---
PATIENT: MARY ESCOBAR LOC: MS3 U#:[id number] AGE/SX: 45/F ROOM: [facility] [place] RE03/10/[address]: Dr. Nahum Peñaloza MD : 1975 BED: 1 DIS: 03/18/2021 SPEC #: [id number] RECD: 03/14/21 07:35 STATUS: BAN AMADOR #: [id number] AXEL: 03/12/21 00:[address]: Álvaro Bagley DEPT: SURGICAL PATHOLOGY RECD BY: Juvenal Lancaster ENTERED: 03/14/21 08:08 SP TYPE: GALLBLADDE OTHR DR: MD Dr. Verito Ac MD Dr. Michael Bortz, MD Dr. Nicholas F Kotsonis, MD Tissues: Gallbladder, NOS Procedures: Surgery Specimen Level III Comments: @ Ordering doctor for SUIII edited from to @ con WARREN at 03/14/21 1416 @ Submitting doctor edited from to @ by LEWISOD at 03/14/21 1416 HEADER OPERATION: Laparoscopic subtotal cholecystectomy PRE-OP DIAGNOSIS: Cholelithiasis with choledocholithiasis TISSUE SUBMITTED: Gallbladder MICROSCOPIC DIAGNOSIS Gallbladder, cholecystectomy: Acute and chronic ulcerated and hemorrhagic cholecystitis and cholelithiasis. LESTER:linda 03/15/2021 MICROSCOPIC DESCRIPTION Slides are reviewed. GROSS DESCRIPTION Received is one container labeled with the patient's name and designated gallbladder. The specimen consists of a portion of gallbladder consistent with distal portion measuring 6 cm in length and 2.5 cm in diameter. The proximal portion including cystic duct is not present. The external surface is pink-powell, smooth and glistening for the most part. Focally it is granular, hemorrhagic and contains cautery artifact. The gallbladder contains a small amount of blood clot. Present in the container and also in the gallbladder are multiple, multifaceted powell to light brown stones measuring in aggregate 6.5 x 5 x 3 cm and 0.7 to 1 cm in greatest dimension. The mucosa is ulcerated and congested without any mass lesions. The gallbladder wall measures up to 0.5 cm in thickness. Mirror Finishing Machine Operator sections from the gallbladder are submitted in one cassette. / LESTER:linda 03/14/2021 TC:2 CPT: 63662
[2021-03-12] MEDS: 0.9% Normal Saline 1,000 ML 125 ML IV ×2 (03:21→11:28)
[2021-03-12] MEDS: Heparin Injection (Vial) 5,000 UNIT/ML VIAL 5000 UNIT SC ×3 (06:52→22:52)
[2021-03-12] MEDS: oxyCODONE 5 MG Tablet PO ×2 (06:53→15:13)
--- NOTE | 2021-03-12 08:20 | PCM.PN.SRG ---
Subjective Subjective Patient states pain is slowly improving. No flatus or bowel movements as of yet Objective Data Objective Data Dressings are dry. Serous drainage from [facility] Vital Signs: Vital Signs Temp Pulse Resp BP Pulse Ox 97.8 F 105 H 16 104/89 H 95 03/11/21 22:55 03/11/21 22:55 03/11/21 22:55 03/11/21 22:55 03/12/21 07:09 Oxygen Flow Rate (L/min) 2 Oxygen Delivery Method Nasal Cannula Weight: 328 lb 14.875 oz Body Mass Index (BMI) 64.2 Intake & Output: Intake and Output for Last 24 Hours 03/10/21 03/11/21 03/12/21 23:59 23:59 23:59 Intake Total 1279.17 / 1279.17 1150 / 1150 1000 / 1000 Output Total 30 / 30 Balance 1279.17 / 1279.17 1120 / 1120 1000 / 1000 Lab / Micro Data Result Diagrams: 03/11/21 06:55 03/11/21 06:55 Labs: Laboratory Results - last 24 hr 03/11/21 04:30: Urine Test Negative Micro: Microbiology 03/10/21 09:15 Nasal Secretion SARS-CoV-2 Antigen (Rapid) - Final Assessment & Plan Assessment/Plan (1) Cholelithiasis with choledocholithiasis: PLAN: Postoperative day #1. Await GI function. Await white count to come down. [facility] will remain.
[2021-03-12 08:34] LABS: Absolute Lymphocyte Count 1.02 X10^3/uL (0.83-4.51); Absolute Neutrophil Count 13.5 X10^3/uL (2.0-7.7); Basophil# 0.05 X10^3/uL; Basophil% 0.3 % (0-1); Eosinophil# 0.02 X10^3/uL; Eosinophils% 0.1 % (0-5); Hematocrit 38.5 % (37-47); Hemoglobin 11.5 g/dL (12.0-15.0); Lymphocyte # 1.02 X10^3/ul (0.83-4.51); Lymphocyte % 6.4 % (19-41); Mean Corp Hgb Conc 29.9 g/dL (32-36); Mean Corpuscular Hgb 25.2 pg (27.0-32.0); Mean Corpuscular Volume 84.2 fL (81-99); Mean Platelet Vol. 10.9 fl (6.2-12.0); Monocyte# 1.22 X10^3/uL; Monocyte% 7.6 % (0-10); NRBC Flagged by Analyzer 0 % (0-5); Neutrophil # 13.47 X10^3/uL (2.7-7.7); Neutrophil % 84.4 % (47-70); Platelet Count 271 K/mm3 (150-450); RBC Distribution Width CV 17.3 % (11.6-14.6); RBC Distribution Width SD 53.2 fl (35.1-43.9); Red Blood Count 4.57 M/mm3 (4.2-5.4)
[2021-03-12 08:50] LABS: ALB/GLOB Ratio 0.5 RATIO (0.9-2.4); AST(SGOT) 402 U/L (15-37); Alanine Aminotransfer ALT/SGPT 544 U/L (13-56); Albumin, Serum 2.4 g/dL (3.2-5.0); Alkaline Phosphatase 255 U/L (45-117); Anion Gap 7 (5-15); BUN 8 mg/dL (7-18); BUN/Creat Ratio 11.3 RATIO (10-20); Calcium,Total 8.3 mg/dL (8.5-10.1); Chloride 103 mmol/L (98-107); Creatinine, Serum 0.71 mg/dL (0.55-1.02); EST Glomerular Filtration Rate 96 mL/min (>60); Est Glom Filt Rate - Afr Amer 116 mL/min (>60); Estimated Creatinine Clearance 72.63 ml/min; Globulin 4.7 g/dL (2.2-4.2); Glucose 121 mg/dL (74-106); Protein, Total 7.1 g/dL (6.4-8.2); Sodium Level 137 mmol/L (136-145)
[2021-03-12] MEDS: Pantoprazole Sodium 40 MG Tablet PO (09:28)
[2021-03-12] MEDS: Amox/Clavulanate 875 MG Tablet PO (09:28)
[2021-03-12] MEDS: Ondansetron 4 MG/2 ML Vial IV (11:33)
[2021-03-12] MEDS: 0.9% Saline Lock 10 ML Syringe IV (11:33)
[2021-03-12] MEDS: hydrALAZINE 20 MG/ML Vial 10 MG IV (15:07)
--- NOTE | 2021-03-12 19:07 | PN.HOSP_ITS ---
Subjective Subjective The patient is a 45 y/o F w/ PMHx: Morbid obesity, GERD reported per her prior to current presentation who presented initially to the [facility] ED on 03/10/21 with history of approximately 12 hours of mid upper abdominal discomfort then radiated to left side with concern upon presentation for choledocholithiasis with evidence of transaminitis and hyperbilirubinemia as well as right upper quadrant ultrasound with cholelithiasis and a dilated common bile duct 11 mm with a mildly elevated WBC with a left shift. Patient was admitted per general surgery, placed on IV Zosyn therapy with planned ERCP as well as follow-up cholecystectomy. Patient underwent ERCP on 03/10/[address] Amanda Cervantes with evidence of choledocholithiasis found and partial removal accomplished with biliary sphincterotomy with a stent inserted. Patient then underwent follow-up 03/11/2021 laparoscopic subtotal cholecystectomy with evidence of chronically inflamed gallbladder, densely filled with large cholesterol gallstones. From description of surgical intervention there was difficulty delineating anatomy which prompted the decision for a subtotal cholecystectomy with AURORA drain in place. Waited on day of current presentation per Dr. Ny covering for Dr. Bagley with noted tachycardia with ongoing low-grade temperatures prompting hospitalist consultation request. Patient note had been switched from Zosyn to Augmentin. Patient currently notes feeling decent except complaint of mild abdominal discomfort with coughing or certain movements as well as mild bilateral upper discomfort of the extremities, worse with movements and more aching than anything. Patient denies chills, nausea, emesis, chest pain or dyspnea. Objective Data Objective Data Vital Signs: Vital Signs Temp Pulse Resp BP Pulse Ox 99.4 F H 120 H 18 144/82 H 92 03/12/21 18:14 03/12/21 18:14 03/12/21 18:14 03/12/21 18:14 03/12/21 18:14 Oxygen Flow Rate (L/min) 2 Oxygen Delivery Method Nasal Cannula Weight: 328 lb 14.875 oz Body Mass Index (BMI) 64.2 Intake & Output: Intake and Output for Last 24 Hours 03/10/21 03/11/21 03/12/21 23:59 23:59 23:59 Intake Total 1279.17 / 1279.17 1150 / 1150 1999 / 1999 Output Total 30 / Balance 1279.17 / 1279.17 1120 / 1120 1969 Lab / Micro Data Result Diagrams: 03/12/21 08:24 03/12/21 08:24 Labs: Laboratory Results - last 24 hr 03/12/21 08:24: WBC 16.0 H, RBC 4.57, Hgb 11.5 L, Hct 38.5, MCV 84.2, MCH 25.2 L , MCHC 29.9 L, RDW Std Deviation 53.2 H, RDW Coeff of Chris 17.3 H, Plt Count 271, MPV 10.9, Immature Gran % (Auto) 1.200 H, Neut % (Auto) 84.4 H, Lymph % (Auto) 6.4 L, [place] % (Auto) 7.6, Eos % (Auto) 0.1, Baso % (Auto) 0.3, Absolute Neuts (auto) 13.5 H, Absolute Lymphs (auto) 1.02, Nucleated RBC % 0 03/12/21 08:24: Sodium 137, Potassium 4.0, Chloride 103, Carbon Dioxide 27.0, Anion Gap 7, BUN 8, Creatinine 0.71, Estim Creat Clear Calc 72.63, Est GFR (MDRD) Af Amer 116, Est GFR (MDRD) Non-Af 96, BUN/Creatinine Ratio 11.3, Glucose 121 H, Calcium 8.3 L, Total Bilirubin 2.60 H, AST 402 H, ALT 544 H, Alkaline Phosphatase 255 H, Total Protein 7.1, Albumin 2.4 L, Globulin 4.7 H, Albumin/Globulin Ratio 0.5 L Micro: Microbiology 03/10/21 09:15 Nasal Secretion SARS-CoV-2 Antigen (Rapid) - Final Physical Exam Narrative Physical Examination: General: Awake, alert, oriented x 3 and cooperative, seated upright in the medical surgical bed in no apparent distress. Skin: Mildly flushed color, normal turgor, no icterus, no cyanosis except for noted abdominal incisions with dressings in place with no drainage, AURORA with serosanguineous drainage. HEENT: AT/NC, EOMI, PERRLA, mildly dry MM, no carotid bruits or JVD noted. Lungs: Diminished, greater bases, no evidence of any distress, no rales, ronchi or wheezing. Heart: Mildly tachycardic with regular rhythm; no gallop, rub audible. Abdomen: Soft, morbidly obese, expected tenderness to palpation of the abdomen especially given recent OR, see skin, suspect at least moderate distention but difficult given habitus, mildly distant hypoactive bowel sounds, difficult to assess HSM given habitus and recent operative intervention with pain elicited. Extremities: No cyanosis, no clubbing, mild bilateral lower extremity ankle nonpitting edema. Neurological: Patient awake, alert, oriented as noted, cognitive function i ntact; pupils equally reactive to light and accommodation, cranial nerves II-XII grossly normal, moving all 4 extremities, no focal deficits, strength moderately global decreased secondary to recent interventions. Psychiatric: Affect appears fatigued otherwise normal, no acute evidence of depressive or anxiety feelings. Assessment & Plan Assessment/Plan (1) Cholelithiasis with choledocholithiasis: PLAN: The patient is a 45 y/o F w/ PMHx: Morbid obesity, GERD reported per her prior to current presentation who presented initially to the [facility] ED on 03/10/21 with history of approximately 12 hours of mid upper abdominal discomfort then radiated to left side with concern upon presentation for choledocholithiasis with evidence of transaminitis and hyperbilirubinemia as well as right upper quadrant ultrasound with cholelithiasis and a dilated common bile duct 11 mm with a mildly elevated WBC with a left shift with eventual ERCP and follow-up subtotal cholecystectomy. 1. Acute cholelithiasis, from description possibly chronic cholecystitis with choledocholithiasis: Do suspect this is the primary etiology for patient's fever especially given recent surgical intervention including both ERCP and recent subtotal cholecystectomy on 03/11/2021, will administer more aggressive IV fluids with a liter bolus now and potentially a repeat pending response, obtain lactic acid, obtain blood culture x2, encourage aggressive incentive spirometry, obtain urinalysis as well as chest x-ray to be cautious, transitioning back to IV Zosyn therapy. From discussion with nursing staff surgery concerned about po ssible PE, will request D-dimer although could certainly just be elevated given inflammation with recent interventions. 2. Elevated BP without hypertensive diagnosis: Possibly secondary to recent pr esentation and pain, continue to monitor, add regimen if appropriate. 3. Morbid Obesity: Weight loss and lifestyle changes encouraged, nutrition consultation a potential possibility per primary service discretion. 4. GERD: Continue home PPI 5. DVT prophylaxis: SCDs, chemoprophylaxis per surgery discretion. Charges/Coding Visit Charges Inpatient E&M: 45297 Subs Hosp L3
--- NOTE | 2021-03-12 19:12 | RAD_ITS ---
STUDY: X-RAY CHEST REASON FOR EXAM: Female, 45 years old. Fevers TECHNIQUE: AP COMPARISON: 03/10/2021 FINDINGS: Bilateral perihilar and basilar reticulation stable since the prior study accounting for variations in technique. There is no demonstrated pleural abnormality. Normal size heart. Normal mediastinum and mckay. Normal visualized pulmonary arteries. Normal visualized aortic arch and descending thoracic aorta. No acute bony process. There is no demonstrated abnormality of the visualized soft tissue structures of the upper abdomen. RAD/Chest 1 View (Portable) IMPRESSION: Stable perihilar and basilar atelectasis or pneumonia. Electronically Signed: Andrea Noonan MD ([place]) at 19:46 EDT , Service support ,
[2021-03-12 20:55] LABS: D-Dimer Quantitative (DVT/PE) 3.16 FEU/ug/m (0.27-0.49)
[2021-03-12 20:55] LABS: Lactic Acid 1.1 mmol/L (0.4-1.9)
--- NOTE | 2021-03-12 21:26 | CT_ITS ---
STUDY: CTA CHEST REASON FOR EXAM: Female, 45 years old. suspected PE RADIATION DOSAGE (If Supplied By Facility): CTDIvol = ( 13.85 ) mGy, DLP = ( 476.82 ) mGycm TECHNIQUE: The examination was performed with the intravenous administration of Oral and amp; IV and amp; 100mL Isovue-370. Post-processing of the angiographic images was performed, with multiplanar reformation and 3D reconstruction. Individualized dose optimization techniques were used for this CT. COMPARISON: None. FINDINGS: Normal enhancement of the main pulmonary artery and right and left pulmonary arteries. Normal enhancement of the bilateral peripheral pulmonary arteries. There is no demonstrated pulmonary embolism. Normal thoracic aorta and visualized great vessels. There is no demonstrated aortic dissection. Normal heart and pericardium. Normal mediastinum. Normal hilar regions. There is peribronchial thickening. The lungs are under expanded. Patchy peribronchial atelectasis. There are scattered groundglass opacities along the periphery of the bilateral upper lobes. No cavitating process. Normal pleura. Normal chest wall structures. Normal osseous structures. Normal visualized upper abdomen. CT/CTA Chest W/WO Contrast IMPRESSION: 1. No central or segmental pulmonary embolism. 2. Scattered groundglass opacities and peribronchial atelectasis. Electronically Signed: Andrea Noonan MD ([place]) at 22:36 EDT , Service support ,
[2021-03-12] MEDS: 0.9% Normal Saline 1,000 ML 999 ML IV (22:48)
[2021-03-13] VITALS (8 sets, daily range): BP systolic 132–149; BP diastolic 82–91; PULSE 104–110; RESP 18–20; TEMP 36.8–37.7; O2SAT 93–96
[2021-03-13] MEDS: 0.9% Normal Saline 1,000 ML 125 ML IV ×3 (00:04→23:28)
[2021-03-13 05:19] LABS: Mucous, Urine 0 SEEN /hpf (<or=2+)
[2021-03-13 05:41] LABS: Color, Urine Yellow (Yellow); Glucose, Dipstick Normal (Normal); Ketone-Dipstick 50 mg/dl (Negative); Leukocyte Esterase-Dipstick 25 /ul (Negative); Nitrite-Dipstick Negative (Negative); Occult Blood-Urine 25 /ul (Negative); Protein-Dipstick 15 mg/dl (Negative); Specific Gravity, Urine 1.015 (1.002-1.030); Urine Clarity Clear (Clear); Urine Urobilinogen 1 mg/dl (Normal)
[2021-03-13 06:02] LABS: Urine Bilirubin Dipstick 1 mg/dL (Negative)
[2021-03-13 06:14] LABS: Red Blood Cells-Urine 0-5 SEEN /hpf (0-5); White Blood Cells 0-5 SEEN /hpf (0-5)
[2021-03-13 06:15] LABS: Bacteria 1+ /hpf (None Seen); Squamous Epithelial Cells - UA 0-5 SEEN /hpf (5-10)
[2021-03-13] MEDS: Heparin Injection (Vial) 5,000 UNIT/ML VIAL 5000 UNIT SC ×3 (06:58→21:30)
[2021-03-13 07:15] LABS: Absolute Lymphocyte Count 1.23 X10^3/uL (0.83-4.51); Absolute Neutrophil Count 12.5 X10^3/uL (2.0-7.7); Basophil# 0.05 X10^3/uL; Basophil% 0.3 % (0-1); Eosinophil# 0.03 X10^3/uL; Eosinophils% 0.2 % (0-5); Hematocrit 36.7 % (37-47); Lymphocyte # 1.23 X10^3/ul (0.83-4.51); Mean Corpuscular Hgb 25.1 pg (27.0-32.0); Mean Corpuscular Volume 83.8 fL (81-99); Mean Platelet Vol. 10.7 fl (6.2-12.0); Monocyte# 1.23 X10^3/uL; NRBC Flagged by Analyzer 0.2 % (0-5); Neutrophil # 12.51 X10^3/uL (2.7-7.7); Neutrophil % 81.7 % (47-70); Platelet Count 255 K/mm3 (150-450); RBC Distribution Width CV 17.5 % (11.6-14.6); RBC Distribution Width SD 53.1 fl (35.1-43.9); Red Blood Count 4.38 M/mm3 (4.2-5.4); White Blood Count 15.3 K/mm3 (4.4-11.0)
[2021-03-13 07:32] LABS: ALB/GLOB Ratio 0.5 RATIO (0.9-2.4); AST(SGOT) 153 U/L (15-37); Alanine Aminotransfer ALT/SGPT 340 U/L (13-56); Albumin, Serum 2.2 g/dL (3.2-5.0); Alkaline Phosphatase 248 U/L (45-117); Anion Gap 7 (5-15); BUN 9 mg/dL (7-18); BUN/Creat Ratio 15.1 RATIO (10-20); Calcium,Total 8.1 mg/dL (8.5-10.1); Chloride 104 mmol/L (98-107); EST Glomerular Filtration Rate 116 mL/min (>60); Est Glom Filt Rate - Afr Amer 141 mL/min (>60); Estimated Creatinine Clearance 85.94 ml/min; Globulin 4.6 g/dL (2.2-4.2); Glucose 114 mg/dL (74-106); Potassium 3.9 mmol/L (3.5-5.1); Protein, Total 6.8 g/dL (6.4-8.2); Sodium Level 137 mmol/L (136-145)
[2021-03-13] MEDS: Pantoprazole Sodium 40 MG Tablet PO (09:59)
--- NOTE | 2021-03-13 10:12 | PCM.PN.SRG ---
Subjective Subjective Patient became profoundly tachycardic yesterday evening. Consultation from the hospitalist was obtained CT scan of the chest did not reveal any signs of pulmonary embolus. Subsequently switch back to IV antibiotics. Objective Data Objective Data This morning she states her pain has improved she no longer has pain in her arms. No real change from yesterday's exam. Vital Signs: Vital Signs Temp Pulse Resp BP Pulse Ox 98.3 F 104 H 18 136/85 H 95 03/13/21 10:03 03/13/21 10:03 03/13/21 10:03 03/13/21 10:03 03/13/21 10:03 Oxygen Flow Rate (L/min) 1 Oxygen Delivery Method Nasal Cannula Weight: 328 lb 14.875 oz Body Mass Index (BMI) 64.2 Intake & Output: Intake and Output for Last 24 Hours 03/11/21 03/12/21 03/13/21 23:59 23:59 23:59 Intake Total 1150 / 1150 3000 / 3000 1050 / 1050 Output Total 30 230 / 230 1130 / 1130 Balance 1120 / 1120 2770 / 2770 -80 / -80 Lab / Micro Data Result Diagrams: 03/13/21 06:54 03/13/21 06:54 Labs: Laboratory Results - last 24 hr 03/12/21 20:05: Lactic Acid 1.1 03/12/21 20:17: D-Dimer Quant (PE/DVT) 3.16 H* 03/13/21 03:05: Urine Color Yellow, Urine Clarity Clear, Urine pH 6.0, Ur Specific [place] 1.015, Urine Protein 15 H, Urine Glucose (UA) Normal, Urine Ketones 50 H, Urine Occult Blood 25 H, Urine Nitrite Negative, Urine Bilirubin 1 H, Urine Urobilinogen 1 H, Ur Leukocyte Esterase 25 H, Urine RBC 0-5 SEEN, Urine WBC 0-5 SEEN, Ur Squamous Epith Cells 0-5 SEEN, Urine Bacteria 1+, Urine Mucus 0 SEEN 03/13/21 06:54: WBC 15.3 H, RBC 4.38, Hgb 11.0 L, Hct 36.7 L, MCV 83.8, MCH 25.1 L, MCHC 30.0 L, RDW Std Deviation 53.1 H, RDW Coeff of Chris 17.5 H, Plt Count 255, MPV 10.7, Immature Gran % (Auto) 1.800 H, Neut % (Auto) 81.7 H, Lymph % (Auto) 8.0 L, [place] % (Auto) 8.0, Eos % (Auto) 0.2, Baso % (Auto) 0.3, Absolute Neuts (auto) 12.5 H, Absolute Lymphs (auto) 1.23, Nucleated RBC % 0.2 03/13/21 06:54: Sodium 137, Potassium 3.9, Chloride 104, Carbon Dioxide 26.0, Anion Gap 7, BUN 9, Creatinine 0.60, Estim Creat Clear Calc 85.94, Est GFR (MDRD) Af Amer 141, Est GFR (MDRD) Non-Af 116, BUN/Creatinine Ratio 15.1, Glucose 114 H, Calcium 8.1 L, Total Bilirubin 1.20 H, AST 153 H, ALT 340 H, Alkaline Phosphatase 248 H, Total Protein 6.8, Albumin 2.2 L, Globulin 4.6 H, Albumin/Globulin Ratio 0.5 L Micro: Microbiology 03/10/21 09:15 Nasal Secretion SARS-CoV-2 Antigen (Rapid) - Final Radiography Diagnostic Testing: Radiology Impression Chest X-Ray 03/12/21 19:12 IMPRESSION: Stable perihilar and basilar atelectasis or pneumonia. Electronically Signed: Andrea Noonan MD ([place]) at 19:46 EDT , Service support , Chest CTA 03/12/21 21:26 IMPRESSION: 1. No central or segmental pulmonary embolism. 2. Scattered groundglass opacities and peribronchial atelectasis. Electronically Signed: Andrea Noonan MD ([place]) at 22:36 EDT , Service support , Assessment & Plan Assessment/Plan (1) Cholelithiasis with choledocholithiasis: PLAN: This point will try to encourage increased ambulation as well as increased pulmonary toilet. We will leave on IV antibiotics.
--- NOTE | 2021-03-13 11:06 | PCM.PN.HOSP ---
Documented by User: Yamel Biswas LAPIDARY APPRENTICE, LAPIDARY APPRENTICE-C 03/13/21 11:12 Subjective Subjective Patient seen and examined. Denies significant pain. Denies chest pain, shortness of breath. Denies fever, chills. Objective Data Objective Data Vital Signs: Vital Signs Temp Pulse Resp BP Pulse Ox 98.3 F 104 H 18 136/85 H 95 03/13/21 10:03 03/13/21 10:03 03/13/21 10:03 03/13/21 10:03 03/13/21 10:03 Oxygen Flow Rate (L/min) 1 Oxygen Delivery Method Nasal Cannula Weight: 328 lb 14.875 oz Body Mass Index (BMI) 64.2 Intake & Output: Intake and Output for Last 24 Hours 03/11/21 03/12/21 03/13/21 23:59 23:59 23:59 Intake Total 1150 / 1150 3000 / 3000 1100 / 1100 Output Total 230 / 230 1130 / 1130 Balance 1120 / 1120 2770 / 2770 -30 / -30 Lab / Micro Data Result Diagrams: 03/13/21 06:54 03/13/21 06:54 Labs: Laboratory Results - last 24 hr 03/12/21 20:05: Lactic Acid 1.1 03/12/21 20:17: D-Dimer Quant (PE/DVT) 3.16 H* 03/13/21 03:05: Urine Color Yellow, Urine Clarity Clear, Urine pH 6.0, Ur Specific [place] 1.015, Urine Protein 15 H, Urine Glucose (UA) Normal, Urine Ketones 50 H, Urine Occult Blood 25 H, Urine Nitrite Negative, Urine Bilirubin 1 H, Urine Urobilinogen 1 H, Ur Leukocyte Esterase 25 H, Urine RBC 0-5 SEEN, Urine WBC 0-5 SEEN, Ur Squamous Epith Cells 0-5 SEEN, Urine Bacteria 1+, Urine Mucus 0 SEEN 03/13/21 06:54: WBC 15.3 H, RBC 4.38, Hgb 11.0 L, Hct 36.7 L, MCV 83.8, MCH 25.1 L, MCHC 30.0 L, RDW Std Deviation 53.1 H, RDW Coeff of Chris 17.5 H, Plt Count 255, MPV 10.7, Immature Gran % (Auto) 1.800 H, Neut % (Auto) 81.7 H, Lymph % (Auto) 8.0 L, [place] % (Auto) 8.0, Eos % (Auto) 0.2, Baso % (Auto) 0.3, Absolute Neuts (auto) 12.5 H, Absolute Lymphs (auto) 1.23, Nucleated RBC % 0.2 03/13/21 06:54: Sodium 137, Potassium 3.9, Chloride 104, Carbon Dioxide 26.0, Anion Gap 7, BUN 9, Creatinine 0.60, Estim Creat Clear Calc 85.94, Est GFR (MDRD) Af Amer 141, Est GFR (MDRD) Non-Af 116, BUN/Creatinine Ratio 15.1, Glucose 114 H, Calcium 8.1 L, Total Bilirubin 1.20 H, AST 153 H, ALT 340 H, Alkaline Phosphatase 248 H, Total Protein 6.8, Albumin 2.2 L, Globulin 4.6 H, Albumin/Globulin Ratio 0.5 L Micro: Microbiology 03/10/21 09:15 Nasal Secretion SARS-CoV-2 Antigen (Rapid) - Final Radiography Diagnostic Testing: Radiology Impression Chest X-Ray 03/12/21 19:12 IMPRESSION: Stable perihilar and basilar atelectasis or pneumonia. Electronically Signed: Andrea Noonan MD ([place]) at 19:46 EDT , Service support , Chest CTA 03/12/21 21:26 IMPRESSION: 1. No central or segmental pulmonary embolism. 2. Scattered groundglass opacities and peribronchial atelectasis. Electronically Signed: Andrea Noonan MD ([place]) at 22:36 EDT , Service support , Physical Exam Const alert, oriented x3 and no apparent distress Orientation / Consciousness: awake, oriented to person, oriented to place and oriented to time Nutritional Appearance: obese HEENT normocephalic and moist oral mucous membranes Eyes PERRL, EOMs intact bilaterally and conjunctivae normal Neck no lymphadenopathy Resp normal respiratory effort and clear to auscultation bilaterally Cardio regular rhythm and no murmurs Rate: tachycardic Peripheral Pulses: pulses 2+ throughout GI normal to inspection, nondistended, normoactive bowel sounds and non-distended Palpation: tender Extremity normal to inspection Skin no rashes or lesions noted Lesions: no lesions Rashes: no rashes Trauma: no lacerations or abrasions Neuro CN's II-XII intact bilaterally, no focal motor deficits, no sensory deficits noted and deep tendon reflexes 2+ bilaterally Psych mental status grossly normal and affect normal Assessment & Plan Assessment/Plan (1) Cholelithiasis: PLAN: 1. Acute cholelithiasis, chronic cholecystitis with choledocholithiasis-status post subtotal cholecystectomy 03/11/2021 and prior ERCP. Management per surgery. Continue IV Zosyn. As needed antiemetics. As needed pain regimen. 2. Tachycardia-suspect secondary to acute process. CTA obtained with no evidence of PE. Currently stable. 3. Elevated blood pressure without history of hypertension-appears to be improving. Continue to monitor. If remains above goal, consider adding low-dose antihypertensive regimen. 4. Morbid obesity-encouraged diet and lifestyle modifications. 5. GERD-continue PPI. DVT prophylaxis- SCDs This patient was seen by KAVIN Vogel under the supervision of Dr. Peñaloza. Documented by User: Dr. Nahum Peñaloza MD 03/13/21 11:21 Objective Data Lab / Micro Data Result Diagrams: 03/13/21 06:54 03/13/21 06:54 Charges/Coding Addendum Addendum: Dr. Peñaloza: I personally reviewed the chart and examined the patient, and agree with the above findings. 45-year-old morbidly obese female who presented to the hospital with choledocholithiasis, she underwent a ERCP on 03/10/2021 and had a stent placed after sphincterotomy. Then on 03/11/2021 she underwent a laparoscopic cholecystectomy. Medicine was consulted secondary to tachycardia and ongoing low-grade fevers. Covid antigen was negative however D-dimer is elevated likely secondary to surgery. This necessitated a CTA of the chest which was negative for PEs but showed atelectasis and potentially groundglass opacities. I continue to encourage ambulation and getting out of bed. Visit Charges Inpatient E&M: 92807 Subs Hosp L2
[2021-03-13] MEDS: oxyCODONE 5 MG Tablet PO (20:02)
[2021-03-14] VITALS (7 sets, daily range): BP systolic 143–151; BP diastolic 79–92; PULSE 108–120; RESP 16–18; TEMP 36.9–37.3; O2SAT 94–98
[2021-03-14] MEDS: Acetaminophen 325 MG Tablet 650 MG PO (02:26)
[2021-03-14] MEDS: Heparin Injection (Vial) 5,000 UNIT/ML VIAL 5000 UNIT SC ×3 (05:14→21:41)
[2021-03-14 07:04] LABS: Absolute Neutrophil Count 13.9 X10^3/uL (2.0-7.7); Basophil# 0.07 X10^3/uL; Basophil% 0.4 % (0-1); Eosinophil# 0.11 X10^3/uL; Eosinophils% 0.7 % (0-5); Hematocrit 38.8 % (37-47); Hemoglobin 11.6 g/dL (12.0-15.0); Lymphocyte % 8.9 % (19-41); Mean Corp Hgb Conc 29.9 g/dL (32-36); Mean Corpuscular Volume 83.6 fL (81-99); Mean Platelet Vol. 11.4 fl (6.2-12.0); Monocyte# 0.98 X10^3/uL; Monocyte% 5.8 % (0-10); NRBC Flagged by Analyzer 0.3 % (0-5); Neutrophil # 13.86 X10^3/uL (2.7-7.7); Neutrophil % 82.5 % (47-70); Platelet Count 300 K/mm3 (150-450); RBC Distribution Width CV 17.8 % (11.6-14.6); RBC Distribution Width SD 53.8 fl (35.1-43.9); Red Blood Count 4.64 M/mm3 (4.2-5.4); White Blood Count 16.8 K/mm3 (4.4-11.0)
[2021-03-14 07:27] LABS: Anion Gap 8 (5-15); BUN 13 mg/dL (7-18); BUN/Creat Ratio 16.9 RATIO (10-20); Calcium,Total 8.3 mg/dL (8.5-10.1); Chloride 104 mmol/L (98-107); Creatinine, Serum 0.77 mg/dL (0.55-1.02); EST Glomerular Filtration Rate 87 mL/min (>60); Est Glom Filt Rate - Afr Amer 105 mL/min (>60); Estimated Creatinine Clearance 66.97 ml/min; Glucose 114 mg/dL (74-106); Potassium 3.7 mmol/L (3.5-5.1); Sodium Level 137 mmol/L (136-145)
[2021-03-14] MEDS: 0.9% Normal Saline 1,000 ML 125 ML IV ×2 (08:23→16:11)
[2021-03-14] MEDS: Pantoprazole Sodium 40 MG Tablet PO (08:23)
[2021-03-14 08:43] LABS: ALB/GLOB Ratio 0.4 RATIO (0.9-2.4); AST(SGOT) 70 U/L (15-37); Alanine Aminotransfer ALT/SGPT 204 U/L (13-56); Alkaline Phosphatase 207 U/L (45-117)
--- NOTE | 2021-03-14 09:49 | PCM.PN.HOSP ---
Documented by User: Yamel Biswas NP, DIRECTOR AIRPORT OPERATIONS-C 03/14/21 09:53 Subjective Subjective Patient seen and examined. Denies shortness of breath. Denies pain. Intermittent low-grade fever. Encourage patient to ambulate/up to chair. Objective Data Objective Data Vital Signs: Vital Signs Temp Pulse Resp BP Pulse Ox 99.0 F 120 H 18 145/92 H 94 03/14/21 08:27 03/14/21 08:30 03/14/21 08:27 03/14/21 08:27 03/14/21 08:27 Oxygen Flow Rate (L/min) 1 Oxygen Delivery Method Room Air Weight: 328 lb 14.875 oz Body Mass Index (BMI) 64.2 Intake & Output: Intake and Output for Last 24 Hours 03/12/21 03/13/21 03/14/21 23:59 23:59 23:59 Intake Total 3000 / 3000 3610.42 / 3610.42 1700 / 1700 Output Total 230 / 230 1710 / 1710 620 / 620 Balance 2770 / 2770 1900.42 / 1900.42 1080 / 1080 Lab / Micro Data Result Diagrams: 03/14/21 05:50 03/14/21 05:50 Labs: Laboratory Results - last 24 hr 03/14/21 05:50: WBC 16.8 H, RBC 4.64, Hgb 11.6 L, Hct 38.8, MCV 83.6, MCH 25.0 L, MCHC 29.9 L, RDW Std Deviation 53.8 H, RDW Coeff of Chris 17.8 H, Plt Count 300, MPV 11.4, Immature Gran % (Auto) 1.700 H, Neut % (Auto) 82.5 H, Lymph % (Auto) 8.9 L, [place] % (Auto) 5.8, Eos % (Auto) 0.7, Baso % (Auto) 0.4, Absolute Neuts (auto) 13.9 H, Absolute Lymphs (auto) 1.50, Nucleated RBC % 0.3 03/14/21 05:50: Sodium 137, Potassium 3.7, Chloride 104, Carbon Dioxide 25.0, Anion Gap 8, BUN 13, Creatinine 0.77, Estim Creat Clear Calc 66.97, Est GFR (MDRD) Af Amer 105, Est GFR (MDRD) Non-Af 87, BUN/Creatinine Ratio 16.9, Glucose 114 H, Calcium 8.3 L, Total Bilirubin 0.80, AST 70 H, ALT 204 H, Alkaline Phosphatase 207 H, Total Protein 7.0, Albumin 2.0 L, Globulin 5.0 H, Albumin/Globulin Ratio 0.4 L 03/14/21 05:50: Sodium Cancelled, Potassium Cancelled, Chloride Cancelled, Carbon Dioxide Cancelled, Anion Gap Cancelled, BUN Cancelled, Creatinine Cancelled, Estim Creat Clear Calc Cancelled, Est GFR (MDRD) Af Amer Cancelled, Est GFR (MDRD) Non-Af Cancelled, BUN/Creatinine Ratio Cancelled, Glucose Cancelled, Calcium Cancelled, Total Bilirubin Cancelled, AST Cancelled, ALT Cancelled, Alkaline Phosphatase Cancelled, Total Protein Cancelled, Albumin Cancelled, Globulin Cancelled, Albumin/Globulin Ratio Cancelled Micro: Microbiology 03/10/21 09:15 Nasal Secretion SARS-CoV-2 Antigen (Rapid) - Final Physical Exam Const alert, oriented x3 and no apparent distress Orientation / Consciousness: awake, oriented to person, oriented to place and oriented to time Nutritional Appearance: obese HEENT normocephalic and moist oral mucous membranes Eyes PERRL, EOMs intact bilaterally and conjunctivae normal Neck no lymphadenopathy Resp clear to auscultation bilaterally Auscultation: diminished lung sounds Cardio regular rhythm and no murmurs Cardio Narrative: Mild intermittent tachycardia Peripheral Pulses: pulses 2+ throughout GI normal to inspection, nondistended, normoactive bowel sounds and non-distended GI Narrative: AURORA drain in place Palpation: tender other (Postoperative) Extremity normal to inspection Skin no rashes or lesions noted Lesions: no lesions Rashes: no rashes Trauma: no lacerations or abrasions Neuro CN's II-XII intact bilaterally, no focal motor deficits, no sensory deficits noted and deep tendon reflexes 2+ bilaterally Psych mental status grossly normal and affect normal Assessment & Plan Assessment/Plan (1) Cholelithiasis: PLAN: 1. Acute cholelithiasis, chronic cholecystitis with choledocholithiasis-status post subtotal cholecystectomy 03/11/2021 and prior ERCP. Management per surgery. Continue IV Zosyn. As needed antiemetics. As needed pain regimen. AURORA drain in place. Ongoing management per surgery. 2. Tachycardia-suspect secondary to acute process. CTA obtained with no evidence of PE. Currently stable. 3. Elevated blood pressure without history of hypertension-appears to be improving. Continue to monitor. If remains above goal, consider adding low-dose antihypertensive regimen. At this time not indicated. 4. Morbid obesity-encouraged diet and lifestyle modifications. 5. GERD-continue PPI. DVT prophylaxis- Heparin sc Hospitalist services consulted for postoperative fevers and shortness of breath/rule out PE. PE ruled out. Fevers improving. Stable from a medical standpoint. Will follow peripherally at this time. Please notify with any new concerns. This patient was seen by KAVIN Vogel under the supervision of Dr. Peñaloza. Documented by User: Dr. Nahum Peñaloza MD 03/14/21 11:49 Objective Data Lab / Micro Data Result Diagrams: 03/14/21 05:50 03/14/21 05:50 Charges/Coding Addendum Addendum: Dr. Peñaloza: I personally reviewed the chart and examined the patient, and agree with the above findings. 45-year-old morbidly obese female who presented to the hospital with choledocholithiasis, she underwent a ERCP on 03/10/2021 and had a stent placed after sphincterotomy. Then on 03/11/2021 she underwent a laparoscopic cholecystectomy. Medicine was consulted secondary to tachycardia and ongoing low-grade fevers. Covid antigen was negative however D-dimer is elevated likely secondary to surgery. This necessitated a CTA of the chest which was negative for PEs but showed atelectasis and potentially groundglass opacities. I continue to encourage ambulation and getting out of bed. 03/14/2021: Doing well today, she is afebrile and is on room air. Tachycardia is likely related to pain and we continue to encourage ambulation and getting out of bed to resolve any atelectasis. CTA was negative for any PEs and her Covid antigen was negative as well. We will continue to follow peripherally. Visit Charges Inpatient E&M: 49599 Subs Hosp L2
[2021-03-14] MEDS: Ondansetron 4 MG/2 ML Vial IV (12:36)
[2021-03-14] MEDS: 0.9% Saline Lock 10 ML Syringe IV (12:36)
[2021-03-14 13:06] LABS: Lipase 48 U/L (73-393)
--- NOTE | 2021-03-14 13:58 | PN.SURG_ITS ---
Subjective Subjective Patient seen and examined during a.m. rounds and then again this afternoon. She denies any significant abdominal discomfort. She confirms that she has been up walking the halls and sitting in the chair today. She had 1 bout of nausea and vomiting, but she attributes this to some postnasal drip. Otherwise she is tolerating a liquid diet. Objective Data Objective Data Vital Signs: Vital Signs Temp Pulse Resp BP Pulse Ox 99.0 F 120 H 18 145/92 H 94 03/14/21 08:27 03/14/21 08:30 03/14/21 08:27 03/14/21 08:27 03/14/21 08:27 Oxygen Flow Rate (L/min) 1 Oxygen Delivery Method Room Air Weight: 328 lb 14.875 oz Body Mass Index (BMI) 64.2 Intake & Output: Intake and Output for Last 24 Hours 03/12/21 03/13/21 03/14/21 23:59 23:59 23:59 Intake Total 3000 / 3000 3610.42 / 3610.42 1700 / 1700 Output Total 230 / 230 1710 / 1710 620 / 620 Balance 2770 / 2770 1900.42 / 1900.42 1080 / 1080 Lab / Micro Data Result Diagrams: 03/14/21 05:50 03/14/21 05:50 Labs: Laboratory Results - last 24 hr 03/14/21 05:50: WBC 16.8 H, RBC 4.64, Hgb 11.6 L, Hct 38.8, MCV 83.6, MCH 25.0 L , MCHC 29.9 L, RDW Std Deviation 53.8 H, RDW Coeff of Chris 17.8 H, Plt Count 300, MPV 11.4, Immature Gran % (Auto) 1.700 H, Neut % (Auto) 82.5 H, Lymph % (Auto) 8.9 L, O'Brien % (Auto) 5.8, Eos % (Auto) 0.7, Baso % (Auto) 0.4, Absolute Neuts (auto) 13.9 H, Absolute Lymphs (auto) 1.50, Nucleated RBC % 0.3 03/14/21 05:50: Sodium 137, Potassium 3.7, Chloride 104, Carbon Dioxide 25.0, Anion Gap 8, BUN 13, Creatinine 0.77, Estim Creat Clear Calc 66.97, Est GFR (MDRD) Af Amer 105, Est GFR (MDRD) Non-Af 87, BUN/Creatinine Ratio 16.9, Glucose 114 H, Calcium 8.3 L, Total Bilirubin 0.80, AST 70 H, ALT 204 H, Alkaline Phosphatase 207 H, Total Protein 7.0, Albumin 2.0 L, Globulin 5.0 H, Albumin/Globulin Ratio 0.4 L 03/14/21 05:50: Sodium Cancelled, Potassium Cancelled, Chloride Cancelled, Carbon Dioxide Cancelled, Anion Gap Cancelled, BUN Cancelled, Creatinine Cancelled, Estim Creat Clear Calc Cancelled, Est GFR (MDRD) Af Amer Cancelled, Est GFR (MDRD) Non-Af Cancelled, BUN/Creatinine Ratio Cancelled, Glucose Cancelled, Calcium Cancelled, Total Bilirubin Cancelled, AST Cancelled, ALT Cancelled, Alkaline Phosphatase Cancelled, Total Protein Cancelled, Albumin Cancelled, Globulin Cancelled, Albumin/Globulin Ratio Cancelled 03/14/21 05:50: Lipase 48 L Micro: Microbiology 03/10/21 09:15 Nasal Secretion SARS-CoV-2 Antigen (Rapid) - Final Physical Exam Const no apparent distress Resp normal respiratory effort GI GI Narrative: Obese, mildly distended, soft. Operative dressings intact without drainage. Right upper quadrant AURORA drain with some very thin yellow?tented drainage. Assessment & Plan Assessment/Plan (1) Cholecystitis with cholangitis: PLAN: Patient status post laparoscopic subtotal cholecystectomy and ERCP last week. She persist with a postoperative leukocytosis and tachycardia. CMP continues to trend appropriately downward. Patient denying any significant abdominal tenderness. CT PE protocol yesterday negative for pulmonary embolus. Suspect ongoing inflammatory changes related to recent operation and cholangitis. Neuro: As needed Dilaudid Pulm/CV: Encourage ambulation and good pulmonary toilet; continue to monitor telemetry FEN/GI: Continue clear liquid diet and monitoring electrolytes/LFTs Heme/ID: Continue to monitor CBC and continue IV Zosyn Endo: No acute issues Proph: Subcu heparin every 8 hours and SCDs while in bed Dispo: Continue inpatient stay Charges/Coding Visit Charges Inpatient E&M: 53144 Subs Hosp L2
--- NOTE | 2021-03-14 17:10 | CHAPLAIN ---
Type of Pastoral Visit _x__ Initial Visit ___ Follow-up Visit ___ On-call Visit ___ General Patient Visit ___ Spiritual Assessment ___ Family Conference ___ Bereavement ___ Rapid Response ___ Code Blue ___ Other (describe below) Pastoral Care Referral From _x__ Patient ___ Family ___ Nurse ___ Physician ___ Station Usher ___ Executive Advisor ___ Other (describe below) Sacrament/Intervention _x__ Active listening ___ Anointing ___ Yarsanism ___ Bereavement ___ Communion ___ Екатерина exploration ___ _x__ Life review _x__ Prayer ___ Reconciliation ___ Sacrament of Sick _x__ Supportive presence ___ Wedding ___ Other (describe below) Pastoral Comments patient and mother in room; pt expresses disappointment that she had to stay in hospital, is missing work and thus not having income, and concerned about adult son who lives with her; mother there for support; work environment is supportive too; prayer welcomed
[2021-03-15] MEDS: 0.9% Normal Saline 1,000 ML 125 ML IV ×4 (00:30→21:10)
[2021-03-15 03:00] VITALS: BP 152/76; PULSE 103; RESP 16; TEMP 36.8; O2SAT 94
[2021-03-15] MEDS: Heparin Injection (Vial) 5,000 UNIT/ML VIAL 5000 UNIT SC ×3 (05:01→21:02)
[2021-03-15 05:25] LABS: Absolute Lymphocyte Count 1.94 X10^3/uL (0.83-4.51); Absolute Neutrophil Count 12.8 X10^3/uL (2.0-7.7); Basophil# 0.06 X10^3/uL; Basophil% 0.4 % (0-1); Eosinophil# 0.29 X10^3/uL; Eosinophils% 1.8 % (0-5); Hematocrit 33.2 % (37-47); Hemoglobin 10.3 g/dL (12.0-15.0); Lymphocyte # 1.94 X10^3/ul (0.83-4.51); Lymphocyte % 11.8 % (19-41); Mean Corpuscular Hgb 25.9 pg (27.0-32.0); Mean Corpuscular Volume 83.4 fL (81-99); Mean Platelet Vol. 10.7 fl (6.2-12.0); Monocyte# 1.09 X10^3/uL; Monocyte% 6.7 % (0-10); NRBC Flagged by Analyzer 0.2 % (0-5); Platelet Count 230 K/mm3 (150-450); RBC Distribution Width CV 17.7 % (11.6-14.6); RBC Distribution Width SD 53.2 fl (35.1-43.9); Red Blood Count 3.98 M/mm3 (4.2-5.4); White Blood Count 16.4 K/mm3 (4.4-11.0)
[2021-03-15 05:55] LABS: ALB/GLOB Ratio 0.4 RATIO (0.9-2.4); AST(SGOT) 31 U/L (15-37); Alanine Aminotransfer ALT/SGPT 111 U/L (13-56); Albumin, Serum 1.8 g/dL (3.2-5.0); Alkaline Phosphatase 137 U/L (45-117); Anion Gap 7 (5-15); BUN 10 mg/dL (7-18); BUN/Creat Ratio 16.9 RATIO (10-20); Calcium,Total 7.7 mg/dL (8.5-10.1); Chloride 106 mmol/L (98-107); Creatinine, Serum 0.59 mg/dL (0.55-1.02); EST Glomerular Filtration Rate 117 mL/min (>60); Est Glom Filt Rate - Afr Amer 142 mL/min (>60); Globulin 4.3 g/dL (2.2-4.2); Glucose 86 mg/dL (74-106); Magnesium 2.2 mg/dL (1.6-2.6); Phosphorus 2.8 mg/dL (2.5-4.9); Potassium 3.3 mmol/L (3.5-5.1); Protein, Total 6.1 g/dL (6.4-8.2); Sodium Level 140 mmol/L (136-145)
[2021-03-15 07:41] VITALS: PULSE 90
[2021-03-15 07:47] VITALS: BP 155/95; PULSE 95; RESP 18; TEMP 37.2; O2SAT 94
--- NOTE | 2021-03-15 07:49 | PN.SURG_ITS ---
Subjective Subjective Patient seen and examined during AM rounds. She, again, states that her abdominal discomfort is minimal. She is waiting to get up with nursing to use the restroom. She states that she still has occasional belching, but is otherwise tolerating her liquid diet well. Objective Data Objective Data Vital Signs: Vital Signs Temp Pulse Resp BP Pulse Ox 98.3 F 90 16 152/76 H 94 03/15/21 03:00 03/15/21 07:41 03/15/21 03:00 03/15/21 03:00 03/15/21 03:00 Oxygen Flow Rate (L/min) 1 Oxygen Delivery Method Room Air Weight: 328 lb 14.875 oz Body Mass Index (BMI) 64.2 Intake & Output: Intake and Output for Last 24 Hours 03/13/21 03/14/21 03/15/21 23:59 23:59 23:59 Intake Total 3610.42 / 3610.42 2725 / 2725 1050 / 1050 Output Total 1710 / 1710 840 / 840 50 / 50 Balance 1900.42 / 1900.42 1885 / 1885 1000 / 1000 Lab / Micro Data Result Diagrams: 03/15/21 05:18 03/15/21 05:18 Labs: Laboratory Results - last 24 hr 03/14/21 05:50: Sodium 137, Potassium 3.7, Chloride 104, Carbon Dioxide 25.0, Anion Gap 8, BUN 13, Creatinine 0.77, Estim Creat Clear Calc 66.97, Est GFR (MDRD) Af Amer 105, Est GFR (MDRD) Non-Af 87, BUN/Creatinine Ratio 16.9, Glucose 114 H, Calcium 8.3 L, Total Bilirubin 0.80, AST 70 H, ALT 204 H, Alkaline Phosphatase 207 H, Total Protein 7.0, Albumin 2.0 L, Globulin 5.0 H, Albumin/Globulin Ratio 0.4 L 03/14/21 05:50: Sodium Cancelled, Potassium Cancelled, Chloride Cancelled, Carbon Dioxide Cancelled, Anion Gap Cancelled, BUN Cancelled, Creatinine Cancelled, Estim Creat Clear Calc Cancelled, Est GFR (MDRD) Af Amer Cancelled, Est GFR (MDRD) Non-Af Cancelled, BUN/Creatinine Ratio Cancelled, Glucose Cancelled, Calcium Cancelled, Total Bilirubin Cancelled, AST Cancelled, ALT Cancelled, Alkaline Phosphatase Cancelled, Total Protein Cancelled, Albumin Cancelled, Globulin Cancelled, Albumin/Globulin Ratio Cancelled 03/14/21 05:50: Lipase 48 L 03/15/21 05:18: WBC 16.4 H, RBC 3.98 L, Hgb 10.3 L, Hct 33.2 L, MCV 83.4, MCH 25.9 L, MCHC 31.0 L, RDW Std Deviation 53.2 H, RDW Coeff of Chris 17.7 H, Plt Count 230, MPV 10.7, Immature Gran % (Auto) 1.300 H, Neut % (Auto) 78.0 H, Lymph % (Auto) 11.8 L, Dundy % (Auto) 6.7, Eos % (Auto) 1.8, Baso % (Auto) 0.4, Absolute Neuts (auto) 12.8 H, Absolute Lymphs (auto) 1.94, Nucleated RBC % 0.2 03/15/21 05:18: Sodium 140, Potassium 3.3 L, Chloride 106, Carbon Dioxide 27.0, Anion Gap 7, BUN 10, Creatinine 0.59, Estim Creat Clear Calc 87.40, Est GFR (MDRD) Af Amer 142, Est GFR (MDRD) Non-Af 117, BUN/Creatinine Ratio 16.9, Glucose 86, Calcium 7.7 L, Phosphorus 2.8, Magnesium 2.2, Total Bilirubin 0.50, AST 31, ALT 111 H, Alkaline Phosphatase 137 H, Total Protein 6.1 L, Albumin 1.8 L, Globulin 4.3 H, Albumin/Globulin Ratio 0.4 L Micro: Microbiology 03/10/21 09:15 Nasal Secretion SARS-CoV-2 Antigen (Rapid) - Final Physical Exam Const oriented x3 and no apparent distress Resp normal respiratory effort GI GI Narrative: Obese, mildly distended, incision sites with Steri-Strips still intact beneath OpSite dressings (removed today). There is no surrounding e rythema or drainage from these incisions. Patient has minimal tenderness with palpation, but is most pronounced across the epigastrium adjacent to her subxiphoid port site. The AURORA drain has serous output without lucho bile. Assessment & Plan Assessment/Plan (1) Cholecystitis with cholangitis: PLAN: Patient status post laparoscopic subtotal cholecystectomy and ERCP last week. She persists with a postoperative leukocytosis and tachycardia but both are marginally improved today. CMP continues to trend appropriately downward. Patient denying any significant abdominal tenderness. CT PE protocol negative for pulmonary embolus. Suspect ongoing inflammatory changes related to recent operation and cholangitis. Neuro: As needed Dilaudid, add p.o. Pulm/CV: Encourage ambulation and good pulmonary toilet; continue to monitor telemetry FEN/GI: Advance diet and monitoring electrolytes/LFTs Heme/ID: Continue to monitor CBC and continue IV Zosyn Endo: No acute issues Proph: Subcu heparin every 8 hours and SCDs while in bed Dispo: Continue inpatient stay Charges/Coding Visit Charges Inpatient E&M: 04802 Subs Hosp L2
[2021-03-15] MEDS: Pantoprazole Sodium 40 MG Tablet PO (09:26)
[2021-03-15 14:54] VITALS: BP 150/81; PULSE 90; PULSE 96; RESP 18; TEMP 37.1; O2SAT 97
[2021-03-15 21:00] VITALS: BP 152/90; PULSE 98; RESP 16; TEMP 37.3; O2SAT 98
[2021-03-15] MEDS: Ondansetron 4 MG/2 ML Vial IV (21:02)
[2021-03-15] MEDS: oxyCODONE 5 MG Tablet PO (21:02)
[2021-03-16 03:00] VITALS: BP 129/76; PULSE 98; RESP 16; TEMP 37.1; O2SAT 97
[2021-03-16] MEDS: 0.9% Normal Saline 1,000 ML 125 ML IV (05:09)
[2021-03-16] MEDS: Heparin Injection (Vial) 5,000 UNIT/ML VIAL 5000 UNIT SC ×3 (05:17→21:02)
[2021-03-16 06:49] LABS: Absolute Lymphocyte Count 1.78 X10^3/uL (0.83-4.51); Absolute Neutrophil Count 11.5 X10^3/uL (2.0-7.7); Basophil# 0.04 X10^3/uL; Basophil% 0.3 % (0-1); Eosinophil# 0.32 X10^3/uL; Eosinophils% 2.2 % (0-5); Hematocrit 33.8 % (37-47); Hemoglobin 9.9 g/dL (12.0-15.0); Lymphocyte # 1.78 X10^3/ul (0.83-4.51); Lymphocyte % 12.1 % (19-41); Mean Corp Hgb Conc 29.3 g/dL (32-36); Mean Corpuscular Hgb 25.1 pg (27.0-32.0); Mean Corpuscular Volume 85.6 fL (81-99); Mean Platelet Vol. 11.4 fl (6.2-12.0); Monocyte% 6.1 % (0-10); NRBC Flagged by Analyzer 0.2 % (0-5); Neutrophil # 11.47 X10^3/uL (2.7-7.7); Neutrophil % 77.9 % (47-70); Platelet Count 225 K/mm3 (150-450); RBC Distribution Width CV 17.7 % (11.6-14.6); Red Blood Count 3.95 M/mm3 (4.2-5.4); White Blood Count 14.7 K/mm3 (4.4-11.0)
[2021-03-16 07:34] LABS: ALB/GLOB Ratio 0.4 RATIO (0.9-2.4); AST(SGOT) 24 U/L (15-37); Alanine Aminotransfer ALT/SGPT 77 U/L (13-56); Albumin, Serum 1.8 g/dL (3.2-5.0); Alkaline Phosphatase 117 U/L (45-117); Anion Gap 8 (5-15); BUN 7 mg/dL (7-18); BUN/Creat Ratio 11.4 RATIO (10-20); Calcium,Total 7.9 mg/dL (8.5-10.1); Chloride 106 mmol/L (98-107); Creatinine, Serum 0.62 mg/dL (0.55-1.02); EST Glomerular Filtration Rate 112 mL/min (>60); Est Glom Filt Rate - Afr Amer 136 mL/min (>60); Estimated Creatinine Clearance 83.17 ml/min; Globulin 4.4 g/dL (2.2-4.2); Glucose 87 mg/dL (74-106); Potassium 2.9 mmol/L (3.5-5.1); Protein, Total 6.2 g/dL (6.4-8.2); Sodium Level 139 mmol/L (136-145)
[2021-03-16] MEDS: Pantoprazole Sodium 40 MG Tablet PO (07:55)
[2021-03-16 07:57] VITALS: BP 146/82; PULSE 94; RESP 18; TEMP 37.1; O2SAT 94
[2021-03-16 08:00] VITALS: O2SAT 96
[2021-03-16] MEDS: Amox/Clavulanate 875 MG Tablet PO ×2 (10:11→21:02)
[2021-03-16] MEDS: Potassium Chloride 10mEq/100mL 10 MEQ/100 ML IV.SOLN. 100 MEQ IV BOLUS ×5 (10:11→18:44)
--- NOTE | 2021-03-16 11:05 | PN.SURG_ITS ---
Subjective Subjective Patient seen and examined during AM rounds. She is initially resting on arrival to the room. She states that she has minimal abdominal discomfort at this point. She tolerated her diet advanced to a regular diet yesterday overall well. However, she states that she had an episode of belching that led to her vomiting. This is something she experiences on occasion outside of the hospital. Objective Data Objective Data Vital Signs: Vital Signs Temp Pulse Resp BP Pulse Ox 98.8 F 94 18 146/82 H 96 03/16/21 07:57 03/16/21 07:57 03/16/21 07:57 03/16/21 07:57 03/16/21 08:00 Oxygen Flow Rate (L/min) 1 Oxygen Delivery Method Room Air Weight: 328 lb 14.875 oz Body Mass Index (BMI) 64.2 Intake & Output: Intake and Output for Last 24 Hours 03/14/21 03/15/21 03/16/21 23:59 23:59 23:59 Intake Total 2725 / 2725 3990.34 / 3990.34 1641.67 / 1641.67 Output Total 840 / 840 360 / 360 180 / 180 Balance 1885 / 1885 3630.34 / 3630.34 1461.67 / 1461.67 Lab / Micro Data Result Diagrams: 03/16/21 06:12 03/16/21 06:12 Labs: Laboratory Results - last 24 hr 03/16/21 06:12: WBC 14.7 H, RBC 3.95 L, Hgb 9.9 L, Hct 33.8 L, MCV 85.6, MCH 25.1 L, MCHC 29.3 L D, RDW Std Deviation 55.0 H, RDW Coeff of Chris 17.7 H, Plt Count 225, MPV 11.4, Immature Gran % (Auto) 1.400 H, Neut % (Auto) 77.9 H, Lymph % (Auto) 12.1 L, [place] % (Auto) 6.1, Eos % (Auto) 2.2, Baso % (Auto) 0.3, Absolute Neuts (auto) 11.5 H, Absolute Lymphs (auto) 1.78, Nucleated RBC % 0.2 03/16/21 06:12: Sodium 139, Potassium 2.9 L, Chloride 106, Carbon Dioxide 25.0, Anion Gap 8, BUN 7, Creatinine 0.62, Estim Creat Clear Calc 83.17, Est GFR (MDRD) Af Amer 136, Est GFR (MDRD) Non-Af 112, BUN/Creatinine Ratio 11.4, Glucose 87, Calcium 7.9 L, Total Bilirubin 0.40, AST 24, ALT 77 H, Alkaline Phosphatase 117, Total Protein 6.2 L, Albumin 1.8 L, Globulin 4.4 H, Albumin/Globulin Ratio 0.4 L Micro: Microbiology 03/12/21 20:17 Blood Culture (Wb) - Right Hand Blood Culture - Preliminary No growth in 48 hours. 03/12/21 20:05 Blood Culture (Wb) - Venous Blood Culture - Preliminary No growth in 48 hours. 03/10/21 09:15 Nasal Secretion SARS-CoV-2 Antigen (Rapid) - Final Physical Exam Const no apparent distress Resp normal respiratory effort GI GI Narrative: Nondistended, incision sites appropriate beneath Steri-Strips. AURORA drain with thin yellow output no clear evidence of bile. Soft and minimally te nder to palpation about the subxiphoid port site. Assessment & Plan Assessment/Plan (1) Cholecystitis with cholangitis: PLAN: Patient status post laparoscopic subtotal cholecystectomy and ERCP last week. Improving postoperative leukocytosis and tachycardia. CMP continues to trend appropriately downward and is nearly in the normal range. Patient denying any significant abdominal tenderness. CT PE protocol negative for pulmonary embolus. Suspect ongoing inflammatory changes related to recent operation and cholangitis. Neuro: As needed Dilaudid, as needed oxycodone, as needed acetaminophen Pulm/CV: Encourage ambulation and good pulmonary toilet; continue to monitor telemetry FEN/GI: Continue regular diet and monitoring electrolytes/LFTs Heme/ID: Continue to monitor CBC and transition to p.o. Augmentin Endo: No acute issues Proph: Subcu heparin every 8 hours and SCDs while in bed Dispo: Continue inpatient stay, with possible discharge tomorrow 03/17/2021 pending clinical status Charges/Coding Visit Charges Inpatient E&M: 28430 Subs Hosp L2
[2021-03-16 14:00] VITALS: BP 159/79; PULSE 88; RESP 18; TEMP 37.1; O2SAT 95
[2021-03-16 14:56] LABS: Potassium 3.4 mmol/L (3.5-5.1)
[2021-03-16 15:01] LABS: Phosphorus 2.9 mg/dL (2.5-4.9)
[2021-03-16 20:30] VITALS: BP 149/95; PULSE 95; RESP 18; TEMP 37.4; O2SAT 97
[2021-03-16] MEDS: 0.9% Saline Lock 10 ML Syringe IV (20:35)
[2021-03-17 02:55] VITALS: BP 131/74; PULSE 93; RESP 18; TEMP 37.1; O2SAT 95
[2021-03-17] MEDS: Heparin Injection (Vial) 5,000 UNIT/ML VIAL 5000 UNIT SC ×3 (05:25→21:10)
[2021-03-17 06:07] LABS: Absolute Lymphocyte Count 1.81 X10^3/uL (0.83-4.51); Absolute Neutrophil Count 10.6 X10^3/uL (2.0-7.7); Basophil# 0.03 X10^3/uL; Basophil% 0.2 % (0-1); Eosinophil# 0.27 X10^3/uL; Hematocrit 33.2 % (37-47); Hemoglobin 9.9 g/dL (12.0-15.0); Lymphocyte # 1.81 X10^3/ul (0.83-4.51); Lymphocyte % 13.2 % (19-41); Mean Corp Hgb Conc 29.8 g/dL (32-36); Mean Corpuscular Hgb 25.1 pg (27.0-32.0); Mean Corpuscular Volume 84.3 fL (81-99); Mean Platelet Vol. 11.4 fl (6.2-12.0); Monocyte# 0.78 X10^3/uL; Monocyte% 5.7 % (0-10); NRBC Flagged by Analyzer 0.2 % (0-5); Neutrophil # 10.63 X10^3/uL (2.7-7.7); Neutrophil % 77.2 % (47-70); Platelet Count 240 K/mm3 (150-450); RBC Distribution Width CV 17.6 % (11.6-14.6); RBC Distribution Width SD 53.3 fl (35.1-43.9); Red Blood Count 3.94 M/mm3 (4.2-5.4); White Blood Count 13.8 K/mm3 (4.4-11.0)
[2021-03-17 06:33] LABS: ALB/GLOB Ratio 0.4 RATIO (0.9-2.4); AST(SGOT) 32 U/L (15-37); Alanine Aminotransfer ALT/SGPT 64 U/L (13-56); Albumin, Serum 1.8 g/dL (3.2-5.0); Alkaline Phosphatase 111 U/L (45-117); Anion Gap 9 (5-15); BUN 4 mg/dL (7-18); BUN/Creat Ratio 7.2 RATIO (10-20); Calcium,Total 8.2 mg/dL (8.5-10.1); Chloride 105 mmol/L (98-107); Creatinine, Serum 0.55 mg/dL (0.55-1.02); EST Glomerular Filtration Rate 127 mL/min (>60); Est Glom Filt Rate - Afr Amer 153 mL/min (>60); Estimated Creatinine Clearance 93.76 ml/min; Globulin 4.4 g/dL (2.2-4.2); Glucose 89 mg/dL (74-106); Potassium 3.4 mmol/L (3.5-5.1); Protein, Total 6.2 g/dL (6.4-8.2); Sodium Level 138 mmol/L (136-145)
[2021-03-17] MEDS: Pantoprazole Sodium 40 MG Tablet PO (08:12)
[2021-03-17] MEDS: Amox/Clavulanate 875 MG Tablet PO ×2 (08:12→21:10)
[2021-03-17 08:13] VITALS: BP 157/80; PULSE 92; RESP 16; TEMP 36.6; O2SAT 96
--- NOTE | 2021-03-17 08:28 | PCM.DC ---
Discharge Instructions Diet Discharge Diet: Light diet - advance as tolerated Activity Discharge Activity: May Drive and May Not Shower Lifting Restrictions: 10 pounds Dressing / Incision Call your doctor if your incision/area has: Continuous Slow Oozing, Sudden Increased Bleeding, Increased Pain/ Swelling, Increased Redness, Foul Smelling Discharge and Swelling at the incision site Call your doctor if you observe: Fever of 101 or Higher Additional Dressing/Incision Instructions:: Please record the number of fluid drainage each time you empty the drain. Bring the record paper with you to your follow-up appointment. Follow Up Care Please Follow Up With: Álvaro Bagley MD When: 1 week. Please call to schedule a follow-up appointment at [phone]. Test Results: Test results from this visit will be discussed in further detail at your follow-up appointment, if applicable. Discharge Plan Admission Admit Date/Time: 03/10/21 10:57 Primary Reason for Your Visit: Choledocholithiasis with cholangitis Attending Provider: Nahum Peñaloza Primary Care Provider: Verito Sandy Consulting Providers: Lora Luna Instructions Patient Instructions: ED Gallstones with Biliary Colic Additional Instructions / Restrictions: You will be going home with a drain. No showering until drain is completely out. Follow-up with Dr. Bagley in 1 week. Discharge Orders/Prescriptions Prescriptions: New amoxicillin-pot clavulanate 875-125 mg Tablet 1 tab PO BID 7 Days Qty: 14 RF: 0 Continued omeprazole 40 MG capsule,delayed release(DR/EC) 40 mg PO DAILY RF: 0 Referrals / Follow Up: Verito Sandy MD [Primary Care Provider] - Álvaro Bagley MD [STAFF PHYSICIAN] - (Follow-up in 1 week. Please call [phone] to schedule an appointment. )
[2021-03-17 08:53] VITALS: O2SAT 95
--- NOTE | 2021-03-17 12:40 | PN.SURG_ITS ---
Subjective Subjective Patient seen and examined during AM rounds and again this afternoon. She denies any abdominal discomfort. She states that she is tolerating diet without nausea or vomiting. She does continue remark of belching episodes but this is part of her baseline. She is eager to get home for some out-of-town visitors. Objective Data Objective Data Vital Signs: Vital Signs Temp Pulse Resp BP Pulse Ox 97.9 F 92 16 157/80 H 95 03/17/21 08:13 03/17/21 08:13 03/17/21 08:13 03/17/21 08:13 03/17/21 08:53 Oxygen Flow Rate (L/min) 1 Oxygen Delivery Method Room Air Weight: 328 lb 14.875 oz Body Mass Index (BMI) 64.2 Intake & Output: Intake and Output for Last 24 Hours 03/15/21 03/16/21 03/17/21 23:59 23:59 23:59 Intake Total 3990.34 / 3990.34 2141.67 / 2141.67 Output Total 360 / 360 240 / 240 75 / 75 Balance 3630.34 / 3630.34 1901.67 / 1901.67 -75 / -75 Lab / Micro Data Result Diagrams: 03/17/21 05:54 03/17/21 05:54 Labs: Laboratory Results - last 24 hr 03/16/21 14:30: Potassium 3.4 L 03/16/21 14:30: Phosphorus 2.9 03/17/21 05:54: WBC 13.8 H, RBC 3.94 L, Hgb 9.9 L, Hct 33.2 L, MCV 84.3, MCH 25.1 L, MCHC 29.8 L, RDW Std Deviation 53.3 H, RDW Coeff of Chris 17.6 H, Plt Count 240, MPV 11.4, Immature Gran % (Auto) 1.700 H, Neut % (Auto) 77.2 H, Lymph % (Auto) 13.2 L, Marin % (Auto) 5.7, Eos % (Auto) 2.0, Baso % (Auto) 0.2, Absolute Neuts (auto) 10.6 H, Absolute Lymphs (auto) 1.81, Nucleated RBC % 0.2 03/17/21 05:54: Sodium 138, Potassium 3.4 L, Chloride 105, Carbon Dioxide 24.0, Anion Gap 9, BUN 4 L, Creatinine 0.55, Estim Creat Clear Calc 93.76, Est GFR (MDRD) Af Amer 153, Est GFR (MDRD) Non-Af 127, BUN/Creatinine Ratio 7.2 L, Glucose 89, Calcium 8.2 L, Total Bilirubin 0.40, AST 32, ALT 64 H, Alkaline Sruthi sphatase 111, Total Protein 6.2 L, Albumin 1.8 L, Globulin 4.4 H, Albumin/Globulin Ratio 0.4 L Micro: Microbiology 03/12/21 20:17 Blood Culture (Wb) - Right Hand Blood Culture - Preliminary No growth in 48 hours. 03/12/21 20:05 Blood Culture (Wb) - Venous Blood Culture - Preliminary No growth in 48 hours. 03/10/21 09:15 Nasal Secretion SARS-CoV-2 Antigen (Rapid) - Final Physical Exam Const oriented x3 and no apparent distress Resp normal respiratory effort GI GI Narrative: Nondistended, incision sites appropriate beneath Steri-Strips. AURORA drain with thin yellow output no clear evidence of bile. Soft and nontender ev en about port site incisions. Assessment & Plan Assessment/Plan (1) Cholecystitis with cholangitis: PLAN: Patient status post laparoscopic subtotal cholecystectomy and ERCP last week. Cytosis continues to improve. CMP continues to trend appropriately downward. Patient denying any significant abdominal tenderness. CT PE protocol negative for pulmonary embolus. Neuro: As needed Dilaudid, as needed oxycodone, as needed acetaminophen Pulm/CV: Encourage ambulation and good pulmonary toilet; continue to monitor telemetry. Patient more hypertensive today, have requested evaluation by medicine for initiation of possible antihypertensive. FEN/GI: Continue regular diet and monitoring electrolytes/LFTs Heme/ID: Continue to monitor CBC and continue p.o. Augmentin Endo: No acute issues Proph: Subcu heparin every eight hours and SCDs while in bed Dispo: Continue inpatient stay, with possible discharge tomorrow 03/18/2021 pending clinical status Charges/Coding Visit Charges Inpatient E&M: 80472 Subs Hosp L2
[2021-03-17 14:45] VITALS: BP 185/84; PULSE 95; RESP 16; TEMP 37.1; O2SAT 95
[2021-03-17 14:50] VITALS: BP 185/84; PULSE 95
[2021-03-17] MEDS: hydrALAZINE 20 MG/ML Vial 10 MG IV (14:50)
[2021-03-17 21:03] VITALS: BP 159/73; PULSE 105; RESP 18; TEMP 36.8; O2SAT 95
[2021-03-17] MEDS: 0.9% Saline Lock 10 ML Syringe IV (21:10)
[2021-03-18 03:20] VITALS: BP 151/74; PULSE 101; RESP 18; TEMP 36.8; O2SAT 95
[2021-03-18 06:32] LABS: Absolute Lymphocyte Count 1.98 X10^3/uL (0.83-4.51); Absolute Neutrophil Count 10.6 X10^3/uL (2.0-7.7); Basophil# 0.04 X10^3/uL; Basophil% 0.3 % (0-1); Eosinophil# 0.23 X10^3/uL; Eosinophils% 1.6 % (0-5); Hematocrit 32.6 % (37-47); Hemoglobin 9.9 g/dL (12.0-15.0); Lymphocyte # 1.98 X10^3/ul (0.83-4.51); Lymphocyte % 14.2 % (19-41); Mean Corp Hgb Conc 30.4 g/dL (32-36); Mean Corpuscular Hgb 25.2 pg (27.0-32.0); Mean Platelet Vol. 11.5 fl (6.2-12.0); Monocyte# 0.76 X10^3/uL; Monocyte% 5.5 % (0-10); NRBC Flagged by Analyzer 0.2 % (0-5); Neutrophil # 10.64 X10^3/uL (2.7-7.7); Neutrophil % 76.3 % (47-70); Platelet Count 259 K/mm3 (150-450); RBC Distribution Width CV 17.6 % (11.6-14.6); RBC Distribution Width SD 52.1 fl (35.1-43.9); Red Blood Count 3.93 M/mm3 (4.2-5.4); White Blood Count 13.9 K/mm3 (4.4-11.0)
[2021-03-18] MEDS: Heparin Injection (Vial) 5,000 UNIT/ML VIAL 5000 UNIT SC (06:33)
[2021-03-18 07:20] LABS: ALB/GLOB Ratio 0.5 RATIO (0.9-2.4); AST(SGOT) 31 U/L (15-37); Alanine Aminotransfer ALT/SGPT 61 U/L (13-56); Alkaline Phosphatase 106 U/L (45-117); Anion Gap 8 (5-15); BUN 4 mg/dL (7-18); BUN/Creat Ratio 7.2 RATIO (10-20); Calcium,Total 8.3 mg/dL (8.5-10.1); Chloride 105 mmol/L (98-107); Creatinine, Serum 0.56 mg/dL (0.55-1.02); EST Glomerular Filtration Rate 125 mL/min (>60); Est Glom Filt Rate - Afr Amer 152 mL/min (>60); Estimated Creatinine Clearance 92.08 ml/min; Globulin 4.4 g/dL (2.2-4.2); Glucose 95 mg/dL (74-106); Phosphorus 3.5 mg/dL (2.5-4.9); Potassium 3.3 mmol/L (3.5-5.1); Protein, Total 6.4 g/dL (6.4-8.2); Sodium Level 140 mmol/L (136-145)
[2021-03-18 08:05] VITALS: O2SAT 95
[2021-03-18] MEDS: amLODIPine 10 MG Tablet PO (09:03)
[2021-03-18] MEDS: Pantoprazole Sodium 40 MG Tablet PO (09:03)
[2021-03-18] MEDS: Potassium Chloride Oral Tablet 20 MEQ 40 MEQ PO (09:03)
[2021-03-18] MEDS: Amox/Clavulanate 875 MG Tablet PO (09:03)
[2021-03-18 09:06] VITALS: BP 172/80; PULSE 102; RESP 18; TEMP 36.6; O2SAT 95
--- NOTE | 2021-03-18 10:07 | PN.SURG_ITS ---
Subjective Subjective Patient reports that she is doing well this morning. She denies any abdominal discomfort. She denies any further episodes of nausea or vomiting. She states that she has been restricting her diet because she is not sure what will agree with her in this postoperative. She continues to have some diarrhea. Objective Data Objective Data Vital Signs: Vital Signs Temp Pulse Resp BP Pulse Ox 97.8 F 102 H 18 172/80 H 95 03/18/21 09:06 03/18/21 09:06 03/18/21 09:06 03/18/21 09:06 03/18/21 09:06 Oxygen Flow Rate (L/min) 1 Oxygen Delivery Method Room Air Weight: 328 lb 14.875 oz Body Mass Index (BMI) 64.2 Intake & Output: Intake and Output for Last 24 Hours 03/16/21 03/17/21 03/18/21 23:59 23:59 23:59 Intake Total 2141.67 / 2141.67 660 / 660 Output Total 240 / 240 95 / 95 Balance 1901.67 / 1901.67 565 / 565 Lab / Micro Data Result Diagrams: 03/18/21 06:10 03/18/21 06:10 Labs: Laboratory Results - last 24 hr 03/18/21 06:10: WBC 13.9 H, RBC 3.93 L, Hgb 9.9 L, Hct 32.6 L, MCV 83.0, MCH 25.2 L, MCHC 30.4 L, RDW Std Deviation 52.1 H, RDW Coeff of Chris 17.6 H, Plt Count 259, MPV 11.5, Immature Gran % (Auto) 2.100 H, Neut % (Auto) 76.3 H, Lymph % (Auto) 14.2 L, Humphreys % (Auto) 5.5, Eos % (Auto) 1.6, Baso % (Auto) 0.3, Absolute Neuts (auto) 10.6 H, Absolute Lymphs (auto) 1.98, Nucleated RBC % 0.2 03/18/21 06:10: Sodium 140, Potassium 3.3 L, Chloride 105, Carbon Dioxide 27.0, Anion Gap 8, BUN 4 L, Creatinine 0.56, Estim Creat Clear Calc 92.08, Est GFR (MDRD) Af Amer 152, Est GFR (MDRD) Non-Af 125, BUN/Creatinine Ratio 7.2 L, Glucose 95, Calcium 8.3 L, Phosphorus 3.5, Total Bilirubin 0.40, AST 31, ALT 61 H, Alkaline Phosphatase 106, Total Protein 6.4, Albumin 2.0 L, Globulin 4.4 H, Albumin/Globulin Ratio 0.5 L Micro: Microbiology 03/12/21 20:17 Blood Culture (Wb) - Right Hand Blood Culture - Final No growth in 5 days. 03/12/21 20:05 Blood Culture (Wb) - Venous Blood Culture - Final No growth in 5 days. 03/10/21 09:15 Nasal Secretion SARS-CoV-2 Antigen (Rapid) - Final Physical Exam Const oriented x3 and no apparent distress Resp normal respiratory effort GI GI Narrative: Nondistended, incision sites appropriate beneath Steri-Strips (with the exception of one right upper quadrant port site to Steri-Strips have been displaced by patient's right breast and there are some evidence of irritation in this natural skin fold). AURORA drain with thin yellow output no clear evidence of bile. Soft and nontender even about port site incisions. Assessment & Plan Assessment/Plan (1) Cholecystitis with cholangitis: PLAN: Patient status post laparoscopic subtotal cholecystectomy and ERCP last week. Cytosis continues to improve. CMP continues to trend appropriately downward. Patient denying any significant abdominal tenderness. CT PE protocol negative for pulmonary embolus. Neuro: As needed oxycodone, as needed acetaminophen Pulm/CV: Encourage ambulation and good pulmonary toilet; continue to monitor telemetry. Patient remains intermittently hypertensive; medicine has placed patient on Norvasc. FEN/GI: Continue regular diet and monitoring electrolytes/LFTs Heme/ID: Continue to monitor CBC and continue p.o. Augmentin Endo: No acute issues Proph: Subcu heparin every eight hours and SCDs while in bed Dispo: Discharge patient today with clinic follow-up next week. Patient will go on 1 week of Augmentin. Charges/Coding Visit Charges Inpatient E&M: 53613 Subs Hosp L2
[2021-03-18 12:57] VITALS: BP 172/85; PULSE 90; RESP 18; TEMP 37.2; O2SAT 98
--- NOTE | 2021-03-22 13:36 | DS.PCM_ITS ---
Providers Date of Admission: 03/10/21 Primary Care Physician: Dr. Verito Sandy MD Consultations 03/12/21 19:01 Consult: Hospitalist Routine Consulting Provider: Lora Luna Reason for Consult: postop fevers, possible cholingitis or PE EMERGENT Consult: No MD Notified: Yes Date Notified: 03/12/21 Time Notified: 19:01 Method of Notification: Text Reason For Visit: GB DISEASE Diagnosis Discharge Diagnosis (1) Cholecystitis with cholangitis: Status: Acute Code(s): K81.9 - Cholecystitis, unspecified; K83.09 - Other cholangitis Medications at Discharge Home Medications omeprazole 40 mg PO DAILY 04/30/19 amoxicillin-pot clavulanate 1 tab PO BID 7 Days #14 tab 03/17/21 potassium chloride 20 meq PO DAILY #30 tab 03/18/21 Hospital Course Operations - (Laparoscopic subtotal cholecystectomy) Summary of Care Provided Hospital Course: Patient is a 45-year-old female who is admitted on 03/10/2021 with diagnosis of choledocholithiasis. She underwent emergent ERCP with stent placement the same day. The following day, 03/11/2021 she underwent l aparoscopic subtotal cholecystectomy with drain placement due to ambiguous biliary anatomy. She was managed on the floor expectantly with IV antibiotic therapy and experienced perioperative tachycardia requiring a hospitalist consultation. On 03/12/2021 she underwent CTA of the chest concern for possible PE this was negative. Patient had some issues with hypokalemia related to some postoperative emesis, but gradually her diet was successfully advanced and her nausea/vomiting episodes significantly improved. She was ultimately discharged on 03/18/2021 in improved condition. She is scheduled for post?hospital follow- up within 1 week in my outpatient clinic. 1 week of oral antibiotics were prescribed given the persistence of her stone in her common bile duct but her CMP was nearly completely normalized by discharge indicating improved drainage of the liver. Physical Exam Const alert and oriented x3 Resp normal respiratory effort GI GI Narrative: Obese, nondistended, nontender about port site incisions which remain sealed with Steri-Strips. Right upper quadrant drain with serous output Weight / BMI Weight Weight: 328 lb 14.875 oz Body Mass Index (BMI) 64.2 ABG / Lab / Microbiology Data Result Diagrams: 03/18/21 06:10 03/18/21 06:10 Microbiology: Microbiology 03/12/21 20:17 Blood Culture (Wb) - Right Hand Blood Culture - Final No growth in 5 days. 03/12/21 20:05 Blood Culture (Wb) - Venous Blood Culture - Final No growth in 5 days. 03/10/21 09:15 Nasal Secretion SARS-CoV-2 Antigen (Rapid) - Final D/C Instructions Discharge Diet: Light diet - advance as tolerated Call your doctor if your incision/area has: Continuous Slow Oozing, Sudden Increased Bleeding, Increased Pain/ Swelling, Increased Redness, Foul Smelling Discharge and Swelling at the incision site Call your doctor if you observe: Fever of 101 or Higher Additional Dressing/Incision Instructions: Please record the number of fluid drainage each time you empty the drain. Bring the record paper with you to your follow-up appointment. Please Follow Up With: Álvaro Bagley MD When: 1 week. Please call to schedule a follow-up appointment at [phone]. Meaningful Use Info Meaningful Use Diagnoses (Choose all that apply): None applicable Discharge Plan Admission Admit Date/Time: 03/10/21 10:57 Primary Reason for Your Visit: Choledocholithiasis with cholangitis Attending Provider: Nahum Peñaloza Primary Care Provider: Verito Sandy Consulting Providers: Lora Luna Instructions Patient Instructions: ED Gallstones with Biliary Colic Additional Instructions / Restrictions: You will be going home with a drain. No showering until drain is completely out. Follow-up with Dr. Bagley in 1 week. Discharge Orders/Prescriptions Prescriptions: New amoxicillin-pot clavulanate 875-125 mg Tablet 1 tab PO BID 7 Days Qty: 14 RF: 0 potassium chloride 20 mEq tablet extended release 20 meq PO DAILY Qty: 30 RF: 0 Continued omeprazole 40 MG capsule,delayed release(DR/EC) 40 mg PO DAILY RF: 0 Referrals / Follow Up: Verito Sandy MD [Primary Care Provider] - Álvaro Bagley MD [STAFF PHYSICIAN] - (Follow-up in 1 week. Please call [phone] to schedule an appointment. ) Disposition Disposition (needs filled in before D/C Order can be placed): Home, Self Care
== END 2021-03-18 13:15 | disposition home or self-care (01) | DRG 263 ==
LOC: ED 09:57 → MS3 12:13
PROVIDERS: Anesthesiology; Family Medicine; Nurse Practitioner Family; Physician Assistant; Surgery; Admitting Provider Surgery; Emergency Provider Emergency Medicine; PCP Internal Medicine; Visit Provider Family Medicine
PROC: 0F798DZ Dilation of Common Bile Duct with Intraluminal Device, Via Natural or Artificial Opening Endoscopic (ICD-10-PCS; CPT 43260; principal; 2021-03-10 16:30)
PROC: 0FB44ZZ Excision of Gallbladder, Percutaneous Endoscopic Approach (ICD-10-PCS; CPT 47610; principal; 2021-03-11 11:45)
DX: K80.64 Calculus of gallbladder and bile duct with chronic cholecystitis without obstruction (principal); K86.89 Other specified diseases of pancreas; E87.6 Hypokalemia; R03.0 Elevated blood-pressure reading, without diagnosis of hypertension; K21.9 Gastro-esophageal reflux disease without esophagitis; Z20.822 Contact with and (suspected) exposure to COVID-19; E66.01 Morbid (severe) obesity due to excess calories; Z68.44 Body mass index [BMI] 60.0-69.9, adult; Z79.899 Other long term (current) drug therapy
CPT/HCPCS: 36415; 71045; 71275; 74328; 76000; 76705; 80053; 81001; 81025; 83605; 83690; 83735; 84100; 84132; 84484; 85025; 85379; 87040; 87426; 88304; 93005; 97802; 97803; 99285; J7030; J7040; J7050; J7120; Q9967; A4216; J2405

== ENCOUNTER 2021-04-28 11:01 | Day surgery (SDC) | payer MEDICAID, SELFPAY ==
[2021-04-28] VITALS (12 sets, daily range): BP systolic 106–185; BP diastolic 61–88; PULSE 82–98; RESP 16–18; TEMP 36.4–36.7; O2SAT 87–96; BMI 62.2
--- NOTE | 2021-04-28 11:13 | EKG12_ITS ---
Test Reason : PRE OP Blood Pressure : / mmHG Vent. Rate : 092 BPM Atrial Rate : 092 BPM P-R Int : 160 ms QRS Dur : 084 ms QT Int : 392 ms P-R-T Axes : 068 025 051 degrees QTc Int : 484 ms Normal sinus rhythm Prolonged QT Abnormal ECG When compared with ECG of 10-MAR-2021 04:49, No significant change was found Confirmed by PRINCE TREVINO, JORGE ([id number]), editor in chief newspaper [employer] ([id number]) on 05/03/2021 7:36:32 AM Referred By: Verito Sandy Confirmed By:JORGE MORRISON MD
[2021-04-28] MEDS: Lactated Ringers 1,000 ML 15 ML IV (11:30)
--- NOTE | 2021-04-28 11:30 | RAD_ITS ---
EXAM: INTRAOPERATIVE CHOLANGIOGRAM RADIATION DOSE: 906 mGy FLUOROSCOPY TIME: 17:48 seconds REASON FOR EXAM: PAIN Technologist Notes STENT REMOVAL, STONE RETRIEVAL, SPHINCTEROTOMY, BALLOON DILATATION, CONTRAST INJECTION. STONE BASKET AND BALLOON BROKE INSIDE DUCT. STENT DEPLOYMENT. LAST SPOT IMAGE SHOWS BROKEN BASKET RECOVERED IN FILTER OF SUCTION CARTRIDGE. Female, 45 years old. COMPARISON: None. PROVIDED CLINICAL HISTORY: STONES PAIN TECHNIQUE: The examination was performed with physician in attendance. Under fluoroscopic observation, fluoroscopic images were obtained in the operating room. FINDINGS: First image demonstrates surgical instruments overlying the [id number]. Contrast is identified in a cannulated common bile duct. Retrograde contrast is notseen in the pancreatic duct. Contrast is seen in the intrahepatic ducts. There is placement of a stent. IMPRESSION: Fluoroscopic assistance images were obtained. Pertinent findings noted above. Electronically Signed: Modesto Hernandez MD at 15:00 EST , Service support , RAD/ERCP Biliary Only
[2021-04-28 11:36] LABS: Internal QC Validated? YES +Cl - CLEAR BKGD; Pregnancy, Urine Negative Negative
--- NOTE | 2021-04-28 12:01 | HP.PCM_ITS ---
History and Physical Date of Admission: 04/28/21 Intake Intake Visit Reasons: POST OP GALLBLADDER 03/18 schedule stent removal Chief Complaint: indigestion epigastric pain Allergies No Known Allergies Allergy (Verified 04/08/21 13:49) Medications omeprazole 40 mg PO DAILY 04/30/19 [History Confirmed 04/08/21] potassium chloride 20 meq PO DAILY #30 tab 03/18/21 [Rx Confirmed 04/08/21] ondansetron HCl 4 mg tablet 4 mg PO Q6H PRN #14 tab 04/04/21 [Rx Confirmed 04/08/21] Subjective Details: Patient is doing well with no abdominal pain Objective Details: Abdomen soft and nontender Coding Level of Care Code Global Post Op Diagnoses Cholelithiasis with choledocholithiasis K80.70 [facility] Medical History GERD (gastroesophageal reflux disease) Surgical History History of tonsillectomy Social History Smoking Status: Never smoker Assessment and Plan (No Qualifiers) Assessment and Plan (1) Cholelithiasis with choledocholithiasis: Status: Resolved Comment: Patient with biliary stent in place. Scheduled clinic follow-up with Dr. Jefferson in 2 weeks Plan - Dr. Jhony Jefferson MD: Patient had retained choledocholithiasis with stent placed during last ERCP. I recommend repeat ERCP with stent removal and possible stone removal. I explained that if I was unable to remove the stone a second type I would place a new stent and refer her to tertiary care center for possible lithotripsy or surgery. I discussed ERCP with her once more as well as the risks including but not limited to bleeding, infection, perforation of the bowel or bile duct or panc reatitis. Patient understands and is when to proceed. Jhony Jefferson MD Pager: [facility] [address] [place] [address], [address] [place] [address] Office: I have re-examined the patient. There are no clinical changes since date of exam.
[2021-04-28] MEDS: Cefotetan 2 GM in 0.9% NS 100 ML IV (14:00)
--- NOTE | 2021-04-28 14:14 | OP.ERCP_ITS ---
Patient Name: Rehana Hameed Procedure Date: 04/28/2021 12:16 PM Date of : 1975 Age: 45 Procedure: ERCP Indications: Follow-up of bile duct stone(s) Providers: Jhony Jefferson MD Medicines: General Anesthesia Patient Profile: This is a 45 year old female. Refer to note in patient chart for documentation of history and physical. Complications: No immediate complications. Estimated blood loss: Minimal. Procedure: Pre-Anesthesia Assessment: - Prior to the procedure, a History and Physical was performed, and patient medications and allergies were reviewed. The patient's tolerance of previous anesthesia was also reviewed. The risks and benefits of the procedure and the sedation options and risks were discussed with the patient. All questions were answered, and informed consent was obtained. Prior Anticoagulants: The patient has taken no previous anticoagulant or antiplatelet agents. After reviewing the risks and benefits, the patient was deemed in satisfactory condition to undergo the procedure. After obtaining informed consent, the scope was passed under direct vision. Throughout the procedure, the patient's blood pressure, pulse, and oxygen saturations were monitored continuously. The duodenoscope was introduced through the mouth, and advanced to the duodenum and used to inject contrast into the bile duct. The ERCP was technically difficult and complex due to a large stone. Scope In: 12:36:33 PM Scope Out: 1:57:01 PM Total Procedure Duration Time 1 hour 20 minutes 28 seconds Findings: One stent was removed from the biliary tree using a snare. A 0.035 inch x 260 cm straight Dreamwire was passed into the biliary tree. Biliary sphincterotomy was made with a monofilament sphincterotome using ERBE electrocautery. There was no post-sphincterotomy bleeding. The biliary tree was swept with a 15 mm balloon starting at the bifurcation. There were two large stones unable to be removed. Large basket was attempted but the basket broke leaving the tip in the duct. Several more sweeps were completed using 15 mm balloon until the stones and piece of basket were removed successfully from the duct. Two stones were removed. No stones remained. Elected to replace a stent in case there were any ductal injuries during extraction even though no extravasation was noted. One 10 Fr by 5 cm plastic stent with a single external flap and a single internal flap was placed into the common bile duct. Bile flowed through the stent. The stent was in good position. Impression: - Choledocholithiasis was found. Complete removal was accomplished by biliary sphincterotomy and balloon extraction. - One stent was removed from the biliary tree. - A biliary sphincterotomy was performed. - The biliary tree was swept. - One plastic stent was placed into the common bile duct. Recommendation: - Discharge patient to home. - Advance diet as tolerated. - Continue present medications. - Return to my office in 2 weeks. Procedure Code(s): --- Professional --- 09851, Endoscopic retrograde cholangiopancreatography (ERCP); with removal and exchange of stent(s), biliary or pancreatic duct, including pre- and post-dilation and guide wire passage, when performed, including sphincterotomy, when performed, each stent exchanged 38657, Endoscopic retrograde cholangiopancreatography (ERCP); with removal of calculi/debris from biliary/pancreatic duct(s) Diagnosis Code(s): --- Professional --- K80.50, Calculus of bile duct without cholangitis or cholecystitis without obstruction Z46.59, Encounter for fitting and adjustment of other gastrointestinal appliance and device CPT copyright 2017 [employer]. All rights reserved. The codes documented in this report are preliminary and upon warping machine operator review may be revised to meet current compliance requirements. Jhony Jefferson MD 04/28/2021 2:13:59 PM This report has been signed electronically. Number of Addenda: 0 Note Initiated On: 04/28/2021 12:16 PM
--- NOTE | 2021-04-28 14:15 | OP.CCLET_ITS ---
04/28/2021 Verito Sandy [address] [place] [address] Re : ERCP procedure for Rehana Zari Dear Dr. Sandy This procedure was performed on April. My impressions and recommendations are as follows: Impressions : - Choledocholithiasis was found. Complete removal was accomplished by biliary sphincterotomy and balloon extraction. - One stent was removed from the biliary tree. - A biliary sphincterotomy was performed. - The biliary tree was swept. - One plastic stent was placed into the common bile duct. Recommendations : - Discharge patient to home. - Advance diet as tolerated. - Continue present medications. - Return to my office in 2 weeks. My findings are described in the full procedure note, which is enclosed. If I can be of further assistance, please feel free to contact me at Doctor phone number(s): , Work: . Sincerely, Jhony Jefferson MD 04/28/2021 2:13:59 PM This report has been signed electronically.
== END 2021-04-28 16:57 | disposition home or self-care (01) ==
LOC: EN 11:03 → AC 11:04
PROVIDERS: Anesthesiology; PCP Internal Medicine; Referring Provider Internal Medicine; Visit Provider Surgery
PROC: (CPT 43260; principal; 2021-04-28 11:30)
DX: K80.70 Calculus of gallbladder and bile duct without cholecystitis without obstruction (principal); K30 Functional dyspepsia; M19.90 Unspecified osteoarthritis, unspecified site; K21.9 Gastro-esophageal reflux disease without esophagitis; R06.02 Shortness of breath; E66.01 Morbid (severe) obesity due to excess calories; Z68.44 Body mass index [BMI] 60.0-69.9, adult; Z90.49 Acquired absence of other specified parts of digestive tract
CPT/HCPCS: 43264; 43276; 74328; 76000; 81025; 93005; J7120; C1726; J2405

== ENCOUNTER 2021-09-28 11:19 | Day surgery (SDC) | payer MEDICAID, SELFPAY ==
--- NOTE | 2021-09-28 11:42 | PCM.HP.BLA ---
History and Physical Date of Admission: 09/28/21 Intake Vital Signs 09/12/21 13:51 Height 5 ft Weight: 316 lb 8 oz BMI 61.8 BP 155/87 H Blood Pressure Location Rt brachial Position Sitting Respiration 20 H Pulse 97 Pulse Source Monitor Temp 97.6 F L Temp Source Temporal Pulse Oximetry (%) 96 Oxygen Delivery Method room air Intake Visit Reasons: ERCP WITH STENT REMOVAL Chief Complaint: ERCP With Stent Removal Manufacturing Sales Representative Required: No Is patient in pain?: No Allergies No Known Allergies Allergy (Verified 09/12/21 13:52) Medications omeprazole 40 mg PO DAILY 04/30/19 [History Confirmed 09/12/21] ondansetron HCl 4 mg tablet 4 mg PO Q6H PRN #14 tab 04/04/21 [Rx Confirmed 09/12/21] amlodipine 2.5 mg tablet 2.5 mg PO DAILY 09/12/21 [History Confirmed 09/12/21] PFSH Medical History (Updated 09/12/21 @ 13:43 by Juliane Murphy) Arthritis Cholecystitis Cholelithiasis GERD (gastroesophageal reflux disease) Non-smoker Shortness of breath on exertion Surgical History (Updated 09/12/21 @ 13:44 by Juliane Murphy) History of ERCP History of tonsillectomy Hx laparoscopic cholecystectomy Social History Smoking Status: Never smoker HPI HPI HPI: MARY ESCOBAR, is a 45 F who presents to the office today for follow-up for stent removal. Patient has not had any signs or symptoms or complaints since stent was placed and stone was removed. ROS General General: No weight change or fatigue HEENT HEENT: No difficulty swallowing Endo Endocrine: No thyroid disease Musc Musculoskeletal: No back problems or arthritis Cardio Cardiovascular: No pacemaker, heart disease, atrial fibrillation, high blood pressure, heart attack, heart stent, palpitations or chest pain Psych Psychiatric: No depression or anxiety Resp Respiratory: No shortness of breath, No cough, No COPD, No asthma and No emphysema Gastro Gastrointestinal: No abdominal pain, No nausea or vomiting, No diarrhea, No constipation, No blood in stool, No acid reflux, No hemorrhoids, No ulcers, No gallbladder problem and No black,tarry stools Wilfrid Hematologic: No blood thinners Exam Const General: cooperative Orientation: alert and oriented x3 HENMT Head: normal to inspection Neck Neck: normal visual inspection and full ROM Chest Chest palpation & inspection: normal inspection of the chest Resp Effort & Inspection: normal respiratory effort Auscultation: clear to auscultation bilaterally Cardio Rate: regular rate Rhythm: regular rhythm GI Inspection: non-distended Palpation: soft and nontender Skin General: no rashes or lesions noted Neuro General: patient alert and patient oriented x3 Extrem General: full ROM Psych Appearance: grossly normal Mental Status: mental status grossly normal Assessment and Plan Assessment and Plan (1) Cholelithiasis with choledocholithiasis: Status: Resolved Comment: Patient with biliary stent in place. Scheduled clinic follow-up with Dr. Jefferson in 2 weeks Orders: Orders: ERCP Biliary Only Today Plan - Dr. Jhony Jefferson MD: Patient is here to discuss ERCP with stent removal. I discussed the procedure with her. I went over the risks as well. I discussed endoscopy with the patient and the risks of bleeding or perforation or need for further stent placement. Patient understands the risks and is willing to proceed. I explained endoscopy in detail to the patient. I explained the risks including but not limited to stroke or heart attack with anesthesia, perforation of the GI tract, bleeding, infection. I explained that any of these could necessitate further emergency surgery. The patient understands and all questions were answered sufficiently. The patient wishes to proceed with procedure. Jhony Jefferson MD Pager: [facility] [address] [place] [address], [address] [place] [address] Office: I have re-examined the patient. There are no clinical changes since date of exam.
[2021-09-28 11:52] VITALS: BP 147/93; PULSE 79; RESP 17; TEMP 36.8; O2SAT 95; BMI 63.5
[2021-09-28 12:06] LABS: Internal QC Validated? YES +Cl - CLEAR BKGD; Pregnancy, Urine Negative Negative
--- NOTE | 2021-09-28 12:15 | RAD_ITS ---
STUDY: ERCP. REASON FOR EXAM: Female, 45 years old. ERCP WITH STENT REMOVAL FLUOROSCOPY TIME (if supplied): ( 56 seconds ) minutes/seconds. One image was submitted. TECHNIQUE: An ERCP was performed by the surgeon. Imaging was provided. COMPARISON: Comparison is made with prior study dated 04/28/2021. FINDINGS: ERCP and stent removal. RAD/ERCP Biliary/Pancreas IMPRESSION: ERCP and stent removal. Electronically Signed: Meño Carrizales MD at 15:04 EDT ,
[2021-09-28] MEDS: Lactated Ringers 1,000 ML 15 ML IV (12:35)
--- NOTE | 2021-09-28 13:17 | OP.ERCP_ITS ---
Patient Name: Rehana Hameed Procedure Date: 09/28/2021 12:02 PM Date of : 1975 Age: 45 Procedure: ERCP Indications: Biliary stent removal Providers: Jhony Jefferson MD Medicines: General Anesthesia Patient Profile: This is a 45 year old female. Refer to note in patient chart for documentation of history and physical. Complications: No immediate complications. Estimated blood loss: Minimal. Procedure: Pre-Anesthesia Assessment: - Prior to the procedure, a History and Physical was performed, and patient medications and allergies were reviewed. The patient's tolerance of previous anesthesia was also reviewed. The risks and benefits of the procedure and the sedation options and risks were discussed with the patient. All questions were answered, and informed consent was obtained. Prior Anticoagulants: The patient has taken no previous anticoagulant or antiplatelet agents. After reviewing the risks and benefits, the patient was deemed in satisfactory condition to undergo the procedure. After obtaining informed consent, the scope was passed under direct vision. Throughout the procedure, the patient's blood pressure, pulse, and oxygen saturations were monitored continuously. The [id number] endoscope was introduced through the mouth, and advanced to the duodenum and used to inject contrast into the bile duct. The ERCP was accomplished without difficulty. The patient tolerated the procedure well. Scope In: 1:02:15 PM Scope Out: 1:10:55 PM Total Procedure Duration Time 0 hours 8 minutes 40 seconds Findings: One stent was removed from the biliary tree using a snare. A 0.035 inch x 260 cm straight Dreamwire was passed into the biliary tree. The traction (standard) sphincterotome was passed over the guidewire and the bile duct was then deeply cannulated. Contrast was injected. The biliary tree was swept with a 12 mm balloon starting at the bifurcation. Two stones were removed. No stones remained. Impression: - Choledocholithiasis was found. Complete removal was accomplished by balloon extraction. - One stent was removed from the biliary tree. - The biliary tree was swept. Recommendation: - Discharge patient to home. - Resume previous diet. - Continue present medications. - Return to my office PRN. Procedure Code(s): --- Professional --- 56863, Endoscopic retrograde cholangiopancreatography (ERCP); with removal of foreign body(s) or stent(s) from biliary/pancreatic duct(s) 93111, Endoscopic retrograde cholangiopancreatography (ERCP); with removal of calculi/debris from biliary/pancreatic duct(s) Diagnosis Code(s): --- Professional --- K80.50, Calculus of bile duct without cholangitis or cholecystitis without obstruction Z46.59, Encounter for fitting and adjustment of other gastrointestinal appliance and device CPT copyright 2017 [employer]. All rights reserved. The codes documented in this report are preliminary and upon payroll accountant review may be revised to meet current compliance requirements. Jhony Jefferson MD 09/28/2021 1:16:57 PM This report has been signed electronically. Number of Addenda: 0 Note Initiated On: 09/28/2021 12:02 PM
--- NOTE | 2021-09-28 13:18 | OP.CCLET_ITS ---
09/28/2021 Verito Sandy [address] [place] [id number] Re : ERCP procedure for Rehana Hameed Dear Dr. Sandy This procedure was performed on Tuesday, September 28, 2021. My impressions and recommendations are as follows: Impressions : - Choledocholithiasis was found. Complete removal was accomplished by balloon extraction. - One stent was removed from the biliary tree. - The biliary tree was swept. Recommendations : - Discharge patient to home. - Resume previous diet. - Continue present medications. - Return to my office PRN. My findings are described in the full procedure note, which is enclosed. If I can be of further assistance, please feel free to contact me at Doctor phone number(s): , Work: . Sincerely, Jhony Jefferson MD 09/28/2021 1:16:57 PM This report has been signed electronically.
[2021-09-28 13:19] VITALS: BP 135/65; BP 147/93; PULSE 100; RESP 18; TEMP 36.7; O2SAT 98
[2021-09-28 13:30] VITALS: BP 135/72; BP 147/93; PULSE 94; RESP 14; O2SAT 100
[2021-09-28 13:40] VITALS: BP 130/71; BP 147/93; PULSE 97; RESP 16; TEMP 36.8; O2SAT 94
[2021-09-28 14:02] VITALS: BP 147/93
== END 2021-09-28 14:19 | disposition home or self-care (01) ==
LOC: EN 11:21 → AC 11:23
PROVIDERS: Anesthesiology; PCP Internal Medicine; Referring Provider Surgery; Visit Provider Surgery
PROC: (CPT 43260; principal; 2021-09-28 11:45)
DX: Z46.59 Encounter for fitting and adjustment of other gastrointestinal appliance and device (principal); K80.50 Calculus of bile duct without cholangitis or cholecystitis without obstruction; M19.90 Unspecified osteoarthritis, unspecified site; K21.9 Gastro-esophageal reflux disease without esophagitis; Z20.822 Contact with and (suspected) exposure to COVID-19; Z79.899 Other long term (current) drug therapy
CPT/HCPCS: 43275; 43264; 74330; 76000; 81025; 87426; J7120